=== PATIENT | male | born 1935 | race Caucasian/White ===

== ENCOUNTER 2019-04-18 11:13 | Outpatient (RCR) | payer SELFPAY ==
--- NOTE | 2019-04-24 08:38 | PCCPR ---
Pt called, currently inpt for staff infection; plans to start CR Mon 04/29.
--- NOTE | 2019-05-09 09:46 | PCCPR ---
Program is temporarily suspended due to COVID outbreak.
--- NOTE | 2019-05-23 10:29 | PCCPR ---
Spoke with Hema. He states he is still recovering after being hospitalized but its trying to get in some walking each day. He did received the home exercise guidelines in the mail. Educated him on starting low & slow with exercise and increase as tolerated since he is still recovering from hospitalization. No further questions. Will follow up with Hema next week.
--- NOTE | 2019-06-13 13:58 | PCCPR ---
Weekly update call-informed patient of continued closure through the month of June due to the extension of the senior living in place order. No questions at this time.
--- NOTE | 2019-07-12 14:44 | PCCPR ---
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 He has been on antibiotics for several weeks. He has been having some SOB with swelling to feet and ankles. they have a call out to the Miter Saw Operator for instruction. She states Dr Coyne has cleared him from active infection. They hope he is feeling better to return to the program as he improves and feels stronger. Explained We will keep in touch every couple of weeks on questions and our reopening plans.
== END 2019-04-18 23:59 | disposition home or self-care (01) ==
LOC: ANHCPREHAB 11:13
PROVIDERS: PCP Internal Medicine; Visit Provider Internal Medicine Cardiovascular Disease
DX: I50.9 Heart failure, unspecified (principal)
CPT/HCPCS: 99199

== ENCOUNTER 2019-04-19 10:29 | Outpatient (CLI) | payer MEDICARE, SELFPAY ==
--- NOTE | ~2019-04-19 | US_ITS ---
US venous doppler UE LT DATE: 04/19/2019 11:27 INDICATION: Redness and swelling of left upper extremity TECHNIQUE: Real-time imaging, color flow imaging and Doppler analysis COMPARISON: None FINDINGS: Pacemaker wire is visualized in the left subclavian vein. The left internal jugular, subclavian, axillary, brachial, basilic, cephalic, radial and ulnar veins are patent, without evidence of intraluminal thrombus or occlusion. There is normal compression of th e veins where applicable. IMPRESSION: No evidence of deep venous thrombosis of left upper extremity Reviewed, dictated and finalized at [facility]. Reviewed, dictated and finalized at location B. ING DEPARTMENT END FINDER
== END 2019-04-19 10:30 | disposition home or self-care (01) ==
PROVIDERS: PCP Internal Medicine; Visit Provider Internal Medicine
DX: M79.89 Other specified soft tissue disorders (principal)
CPT/HCPCS: 88108; 93971

== ENCOUNTER 2019-04-19 11:48 | Inpatient (IN) | payer MEDICARE, SELFPAY ==
--- NOTE | ~2019-04-19 | US_ITS ---
EXAMINATION: US elbow asp inj w image LT DATE: 04/19/2019 16:53 INDICATION: Cellulitis at the left forearm and more focal soft tissue swelling posterior to the olecr anon. TECHNIQUE: Initial ultrasound images of the left elbow and forearm were obtained. The loculated fluid collection was identified posterior to the olecranon and it was elected to proceed with aspiration as. See disc ussed with Dr. De Guzman. The procedure and its risks and benefits were discussed with the patient. Kirill hsu risks discussed included bleeding, infection, and allergic reaction. The patient understood the risks and agreed to proceed. The skin overlying the fluid collection was prepped and draped in steril e fashion. 1% lidocaine was used for local anesthesia. Under ultrasound guidance, an 18-gauge needle was advanced into the collection. Fluid was aspirated. The needle was removed, and a dressing was mago lied. There were no immediate complications. FINDINGS: Ultrasound images demonstrate a complex anechoic fluid flexion with multiple thin internal septations overlying the olecranon. The fluid collection measures up to 3.6 x 1.3 cm in the sagittal plane. Sub sequent images demonstrate aspiration needle within the fluid collection. Aspiration yielded 8 mL gabriel udy orange-colored fluid with gradual decompression of the fluid collection. IMPRESSION: 1. Successful ultrasound-guided left olecranon bursal aspiration yielding 8 mL of fluid which was se nt to the lab for Gram stain, cultures and crystal analysis. Reviewed, dictated and finalized at location A. P AND WHEAT FARMER IMPRESSION: 1. Successful ultrasound-guided left olecranon bursal aspiration yielding 8 mL of fluid which was sent to the lab for Gram stain, cultures and crystal analys is.
[2019-04-19 12:04] VITALS: BP 120/87; PULSE 71; RESP 17; TEMP 36.9; O2SAT 100
--- NOTE | 2019-04-19 12:29 | PC.NURSE ---
Pt states he has had cellulitis to the R arm x 2 wks. Pt states he took doxycycline x10 days without improvement. Pt states he started a new abt yesterday and was told to call PCP if no improvement after a full days dose. Pt has no improvement. Pt had doppler of R arm to r/o clot. Pt doppler negative. Pt R arm swollen, tender and erythematous. Pt is A&Ox4. Pt has no concerns at this time.
[2019-04-19 12:55] LABS: Basophils Percent Auto 0.3 % (0.2-1.2); Eosinophils Absolute Auto 0.3 K/mm3 (0-0.3); Eosinophils Percent Auto 2.9 % (0-4.4); Hematocrit 42.6 % (42.0-52.0); Hemoglobin 12.7 g/dL (14.0-18.0); Immature Granulocyte Absolute 0.05 K/mm3 (0.00-0.031); Immature Granulocyte Percent A 0.5 % (0-0.5); Lymphocytes Percent Auto 11.9 % (18.3-44.2); Mean Corpuscular HGB Conc 29.8 g/dl (32-36); Mean Corpuscular Hemoglobin 25.5 pg (26-34); Mean Corpuscular Volume 85.5 fl (80-100); Mean Platelet Volume 11.5 fl (7.4-10.4); Monocytes Absolute Auto 1.5 K/mm3 (0.1-0.6); Monocytes Percent Auto 16.5 % (2.6-8.5); Neutrophils Absolute Auto 6.3 K/mm3 (1.3-6.7); Neutrophils Percent Auto 67.9 % (45.5-73.1); Platelet Count Result 194 k/mm3 (150-375); Red Blood Count 4.98 M/mm3 (4.6-6.20); Red Cell Distribution Width 18.7 % (11.5-14.5); White Blood Count 9.2 K/mm3 (4.5-10.0)
[2019-04-19 13:06] LABS: Hypochromasia 1+ (NORMAL); Platelet Estimate Adequate (Adequate); Stomatocytes 1+ (NORMAL); Target Cells 1+ (NORMAL)
[2019-04-19 13:11] LABS: Alanine Aminotransferase 22 U/L (4-50); Albumin Level 3.6 g/dL (3.5-5.1); Alkaline Phosphatase 57 U/L (38-126); Aspartate Amino Transferase 36 U/L (17-59); Blood Urea Nitrogen 37 mg/dL (9-20); Calcium 8.9 mg/dL (8.4-10.2); Carbon Dioxide 34 mmol/L (22-30); Chloride 96 mmol/L (98-107); Estimated CRCL calculation 46 ml/min; Estimated Glomerular Filt Rate 58; Glucose 72 mg/dL (75-110); Potassium 3.5 mmol/L (3.4-5.0); Sodium 139 mmol/L (137-145)
--- NOTE | 2019-04-19 14:24 | ED.EXTPRO ---
HPI - Extremity Problem General Chief complaint: Extremity Problem,Nontraumatic Stated complaint: Sent from US after negative study Time Seen by Provider: 04/19/19 12:38 Source: patient, family and RN notes reviewed Mode of arrival: ambulatory Limitations: no limitations History of Present Illness HPI Narrative: A 83 y/o male presents to the ED with LUE swelling and erythema for the past 2 weeks. He states that he saw his PCP, Dr. Garnica, roughly 10 days ago and was placed on Doxycycline which he finished a couple days ago. He reports that his symptoms improved after the first round of abx but that they returned, so his PCP placed him on a second round of Doxycycline on Tuesday. He notes some LUE numbness and lt elbow tenderness. He denies any fevers, chills, SOB, N/V/D, or ABD pain. MD Complaint: extremity swelling (and erythema) Onset (ago): week(s) (2) Pain Consistency: intermittent Location: left and upper extremity Relieving factors: medication (Doxycycline) Associated symptoms: other (LUE numbness and lt elbow tenderness) Related Data Home Medications Medication Instructions Recorded Confirmed albuterol sulfate 90 mcg/actuation 1 puff INHALATION Q4H PRN 01/25/19 aerosol inhaler antiarthritic combination no.2 900 mg PO 01/25/19 mg tablet aspirin 81 mg tablet,delayed 81 mg PO DAILY 01/25/19 release calcium carbonate 600 mg calcium 600 mg PO DAILY 01/25/19 (1,500 mg) tablet cholecalciferol (vitamin D3) 10 400 unit PO DAILY 01/25/19 mcg (400 unit) capsule dabigatran etexilate 150 mg capsule 150 mg PO BID 01/25/19 finasteride 5 mg tablet 5 mg PO DAILY 01/25/19 tvrpgxcd-bpy-tzqnb acid 300 1 tablet PO DAILY 01/25/19 mcg-lycopene 600 mcg-lutein 300 mcg tablet omega-3 fatty acids 1,000 mg 2,000 mg PO BID cap 01/25/19 capsule ramipril 10 mg capsule 10 mg PO DAILY 01/25/19 simvastatin 40 mg tablet 40 mg PO DAILY 01/25/19 vit C 250 mg-E 200 unit-zinc 40 1 tablet PO BID 01/25/19 mg-copper 1 ug-qolnig-cmzgtm capsule furosemide 40 mg tablet 60 mg PO BID tablet 02/19/19 metolazone 2.5 mg tablet 2.5 mg PO .qod tablet 04/19/19 Allergies Allergy/AdvReac Type Severity Reaction Status Date / Time Cat Dander Allergy Mild ITCHY EYES Uncoded 04/19/19 09:05 Review of Systems Review of Systems: All systems reviewed & are unremarkable except as noted in HPI and below Constitutional: Constitutional: Denies chills and Denies fever(s) Respiratory: Respiratory: Denies dyspnea Gastrointestinal: Gastrointestinal: Denies abdominal pain, Denies diarrhea, Denies nausea and Denies vomiting Musculoskeletal: Musculoskeletal: Reports other (LUE swelling and erythema, lt elbow tenderness) Neurologic: Reports numbness (LUE) [facility] Past Medical History Medical History A-fib Abnormal EKG Arthritis Benign essential hypertension BMI 24.0-24.9, adult BMI 25.0-25.9,adult BPH (benign prostatic hyperplasia) CAD (coronary artery disease) Cataract of right eye CHF (congestive heart failure) DM type 2 (diabetes mellitus, type 2) Encounter for routine adult health examination without abnormal findings Follow up H/O: HTN (hypertension) History of angina History of GI bleed History of inguinal hernia Hypercholesteremia Hyperlipidemia Lumbar stenosis On senior care drug therapy BOOGIE on CPAP Pedal edema PMR (polymyalgia rheumatica) Pneumonia SOB (shortness of breath) Swelling of left upper extremity URI (upper respiratory infection) Surgical History Surgical History History of angioplasty x3. History of appendectomy History of inguinal hernia repair History of nasal septoplasty History of tonsillectomy History of vascular surgery Hx of CABG Hx of cardiac cath Hx of heart artery stent x6. Family History Family History Mother Family history of cardiovascular disease
[2019-04-19 17:00] LABS: Appearance Synovial Fluid Cloudy (Clear); Color Synovial Fluid Yellow (Colorless); Source Synovial Fluid Synovial fluid
[2019-04-19 17:01] LABS: Lymphocytes Synovial Fluid 1 %; Monocytes Synovial Fluid 7 %; Neutrophils Synovial Fluid 92 % (0-25); Nucleated Cell Synovial Fluid 23600 /uL (0-200); RBC Synovial Fluid 9621 /uL (0-0)
[2019-04-19 17:05] LABS: Crystals Synovial Fluid None Seen (None Seen)
[2019-04-19 18:45] VITALS: BP 105/61; PULSE 70; RESP 18; O2SAT 100
[2019-04-19 19:05] VITALS: BP 108/60; PULSE 71; RESP 16; TEMP 36.4; O2SAT 99
--- NOTE | 2019-04-19 19:48 | PC.NURSE ---
This patient, Shiraz Martinez, was admitted to 2 Medical Room 251-. Patient/family oriented to hospital policies and general routines including ID bracelet, bed and alarms, visiting hours, pain management, procedures, bathroom and other care routines, personal items, smoking policy, room service/diet, and visiting hours. Valuables list has been completed. Information on how to activate the Rapid Response Team has been discussed. Patient/Family are encouraged to report perceived risks to care and to ask questions if they do not understand what they are told or what they should do.
[2019-04-19 21:55] VITALS: BP 102/62; PULSE 70; RESP 18; TEMP 36.8; O2SAT 96
[2019-04-20] VITALS (10 sets, daily range): BP systolic 100–145; BP diastolic 48–82; PULSE 67–117; RESP 16–20; TEMP 36.3–37; O2SAT 91–100
--- NOTE | 2019-04-20 05:00 | PM.IMHP ---
H&P: [facility] History of Present Illness Chief complaint: Left upper extremity cellulitis Narrative: Date and time of patient contact: 04/20/2019 at 5:30 a.m. Shiraz Martinez is a 83 year old male with a past medical history increased risk of diabetes, hypertension and CHF who presented to the ER with left upper extremity swelling and erythema that is been present for the last 12 days. The patient has been evaluated by the primary care physician about 10 days ago and had been placed on doxycycline which she finished a couple of days ago. His extremity erythema and swelling had improved on antibiotics but then worsened couple of days later. He was placed on a 2nd round of doxycycline and referred for an outpatient venous Doppler. His venous Doppler was negative for DVT. He was then referred to the ER for further evaluation. The patient had ultrasound-guided drainage of his olecranon bursa which demonstrated a few gram-positive cocci in clusters and many white cells. The patient was subsequently admitted for IV antibiotic therapy with vancomycin treatment of left upper extremity cellulitis and bursitis. The patient reports that since admission a erythema and swelling in his arm has improved significantly. He reports that his elbow was uncomfortable but not truly painful. He denies any trauma or known abrasions to the left upper extremity. He feels some fullness in the elbow when he tries to straighten out his Arb all the way. He has been having some looser stools since he was started on the doxycycline. He has not had any incontinent stools. He denies any hematochezia or melena. He does have a history of CHF and was recently started on metolazone in addition to his Lasix. He reports his urine output has increased in proportion to the increased medications. He still has some swelling in his lower extremities but it had improved from previous. He has had some decreased appetite with his current symptoms of cellulitis but denies any nausea or vomiting. Review of Systems Review of Systems: Narrative: Except as documented in the HPI, all other systems were reviewed and are negative. [facility] Past Medical History Medical History (Updated 04/20/19 @ 07:23 by Bette Reeder DO) Abnormal EKG Arthritis Benign essential hypertension BMI 24.0-24.9, adult BPH (benign prostatic hyperplasia) CAD (coronary artery disease) Coronary stents 1997, 1 vessel bypass in 2001, stenting of grafted vessel in 2005 CHF (congestive heart failure) Echocardiogram March 30, 2019 performed at [facility] (Dr. Gardner) Mild left ventricular systolic dysfunction with EF of 49%, moderate left ventricular enlargement, moderate concentric left ventricular hypertrophy, severe left atrial enlargement, moderate right atrial enlargement, moderate to severe mitral valve regurgitation, mild aortic stenosis, mild aortic valve regurgitation, moderate to severe tricuspid regurgitation, severe pulmonary hypertension DM type 2 (diabetes mellitus, type 2) A1c of 6.0 2015 History of angina History of GI bleed Upper GI bleed due to duodenal ulcer May 2015 with EGD performed by Dr. Saavedra Hypercholesteremia Hyperlipidemia Hypertensive nephropathy Lumbar stenosis BOOGIE on CPAP Paroxysmal atrial fibrillation Pedal edema PMR (polymyalgia rheumatica) Pneumonia Severe pulmonary arterial systolic hypertension Surgical History Surgical History (Updated 04/20/19 @ 07:23 by Bette Reeder DO) History of angioplasty x3. History of appendectomy History of bilateral cataract extraction History of inguinal hernia repair Left inguinal hernia repair History of nasal septoplasty History of tonsillectomy History of vascular surgery Hx of CABG Hx of cardiac cath Hx of heart artery stent x6. Family History Family History Mother Hypertension CHF (congestive heart failure) Cardiovascular disease Sibling Lung cancer
[2019-04-20 05:30] LABS: Basophils Percent Auto 0.1 % (0.2-1.2); Eosinophils Absolute Auto 0.3 K/mm3 (0-0.3); Eosinophils Percent Auto 4.2 % (0-4.4); Hematocrit 38.8 % (42.0-52.0); Hemoglobin 11.9 g/dL (14.0-18.0); Immature Granulocyte Absolute 0.06 K/mm3 (0.00-0.031); Immature Granulocyte Percent A 0.8 % (0-0.5); Lymphocytes Absolute Auto 0.88 K/mm3 (0.9-3.2); Lymphocytes Percent Auto 11.5 % (18.3-44.2); Mean Corpuscular HGB Conc 30.7 g/dl (32-36); Mean Corpuscular Hemoglobin 25.8 pg (26-34); Monocytes Absolute Auto 1.3 K/mm3 (0.1-0.6); Monocytes Percent Auto 16.5 % (2.6-8.5); Neutrophils Absolute Auto 5.1 K/mm3 (1.3-6.7); Neutrophils Percent Auto 66.9 % (45.5-73.1); Platelet Count Result 196 k/mm3 (150-375); Red Blood Count 4.62 M/mm3 (4.6-6.20); Red Cell Distribution Width 18.3 % (11.5-14.5); White Blood Count 7.7 K/mm3 (4.5-10.0)
[2019-04-20 05:51] LABS: Blood Urea Nitrogen 37 mg/dL (9-20); Calcium 8.5 mg/dL (8.4-10.2); Carbon Dioxide 36 mmol/L (22-30); Chloride 94 mmol/L (98-107); Estimated CRCL calculation 50 ml/min; Estimated Glomerular Filt Rate > 60; Glucose 100 mg/dL (75-110); Potassium 3.1 mmol/L (3.4-5.0); Sodium 135 mmol/L (137-145)
[2019-04-20] MEDS: DABIGATRAN ETEXILATE 150 MG CAPSULE PO ×2 (08:04→16:22)
[2019-04-20] MEDS: SIMVASTATIN 20 MG TABLET 40 MG PO (08:04)
[2019-04-20] MEDS: OPTI-GEN TAB 1 TABLET PO (08:04)
[2019-04-20] MEDS: FUROSEMIDE 20 MG TABLET 60 MG PO ×2 (08:04→16:22)
[2019-04-20] MEDS: ASPIRIN 81 MG ENTERIC TABLET PO (08:05)
[2019-04-20] MEDS: CHOLECALCIFEROL 400 UNITS TABLET (VIT D) PO (08:05)
[2019-04-20] MEDS: PANTOPRAZOLE 40 MG TABLET PO (08:05)
[2019-04-20] MEDS: CALCIUM CARBONATE (OSCAL) 500 MG TABLET PO (08:05)
[2019-04-20] MEDS: FINASTERIDE 5 MG TABLET PO (08:05)
[2019-04-20] MEDS: POTASSIUM CHLORIDE 20 MEQ TABLET 40 MEQ PO (08:06)
--- NOTE | 2019-04-20 08:11 | PC.NURSE ---
Called pharmacy and requested 0900 dose of ramipril be sent to floor for administration.
[2019-04-20] MEDS: ramipriL 5 MG CAPSULE 10 MG PO (11:27)
[2019-04-20] MEDS: ALBUTEROL SULFATE NEB 2.5 MG/3 ML INH INHALATION (14:08)
[2019-04-20 15:30] LABS: Glucose Point of Care 152 (65-105)
--- NOTE | 2019-04-20 16:10 | PM.IMPN ---
Progress Note: A&P Assessment and Plan (1) Cellulitis of arm, left: Code(s): L03.114 - Cellulitis of left upper limb Status: Acute Assessment and Plan: -----Gram stain shows Gram-positive cocci in clusters with white blood cells. Continue vancomycin. Patient has had 2 rounds of doxycycline without much improvement. Blood cultures are still pending but no sign of systemic infection at this time. Will monitor (2) Bursitis, olecranon: Qualifiers: Laterality: left Qualified Code(s): M70.22 - Olecranon bursitis, left elbow Code(s): M70.20 - Olecranon bursitis, unspecified elbow Status: Acute Assessment and Plan: -----continue with plan above. (3) DM type 2 (diabetes mellitus, type 2): Qualifiers: Diabetes mellitus marine oil terminal superintendent insulin use: without marine oil terminal superintendent use Diabetes mellitus complication status: without complication Qualified Code(s): E11.9 - Type 2 diabetes mellitus without complications Code(s): E11.9 - Type 2 diabetes mellitus without complications Status: Acute Assessment and Plan: -----will order sliding scale insulin, Tradjenta, Accu-Cheks and hypoglycemia protocol. (4) CHF (congestive heart failure): Qualifiers: Heart failure type: unspecified Heart failure chronicity: acute Qualified Code(s): I50.9 - Heart failure, unspecified Code(s): I50.9 - Heart failure, unspecified Status: Acute Assessment and Plan: -----patient had a recent echo which showed systolic dysfunction. He has been started on metolazone and was actually doing better until he got some fluids in the ER. Will continue with oral diuretics at this time and monitor fluid status Time Spent With Patient Time with patient: 25 - 35 minutes Subjective Date/time seen: 04/20/19 16:10 Interval history: Pt is a 83-year-old male here for left arm cellulitis. Patient was seen today and states that he thinks the redness is a little less. He is having some pain at the elbow but overall doing well. Pt denies nausea, vomiting, fevers, chills, constipation, diarrhea, chest pain, sob, or abdominal pain. Patient states that he has been having issues with lower extremity swelling and his certified tower climber ordered an echo and ordered him metolazone. This was getting better until he came to the ER and they gave him IV fluids and now he is more swollen. Review of Systems Review of Systems: All systems reviewed & are unremarkable except as noted in HPI and below Exam Narrative: Exam Narrative: General: Well developed well nourished patient resting comfortably in bed in no acute distress HEENT: normocephalic Neck: supple Neuro: Alert and oriented x4 CV:RRR with slight 1/6 systolic murmur best heard at the right intercostal space Resp: Mild faint crackles at the bases Abd: Soft, non distended. No pain to palpation. Positive bowel sounds Extremities: Lower extremity edema 2+ up into the mid singh. Left arm cellulitis that is erythematous without discharge. Pulses and sensation intact. Erythema within the demarcated lines. Objective Data Vital Signs Vital Signs: Vital Signs - 24 hr 04/19/19 18:45 04/19/19 19:05 04/19/19 21:55 Temperature 97.6 F 98.2 F Pulse Rate 70 71 70 Respiratory Rate 18 16 18 Blood Pressure 105/61 108/60 102/62 Pulse Oximetry 100 99 96 04/20/19 02:00 04/20/19 05:34 04/20/19 06:00 Temperature 98.6 F 97.9 F Pulse Rate 69 69 70 Respiratory Rate 20 18 Blood Pressure 145/82 H 107/48 L Pulse Oximetry 98 98 96 04/20/19 10:00 04/20/19 14:00 04/20/19 14:08 Temperature 97.7 F 97.3 F L Pulse Rate 70 68 67 Respiratory Rate 20 20 20 Blood Pressure 109/57 L 100/55 L Pulse Oximetry 91 100 04/20/19 14:15 Temperature Pulse Rate 70 Respiratory Rate 20 Blood Pressure Pulse Oximetry Intake/Output Intake/Output: Intake & Output 04/17/19 04/18/19 04/19/19 04/20/19 23:59 23:59 23:59 2
[2019-04-20 18:26] LABS: Glucose Point of Care 160 (65-105)
[2019-04-20 21:42] LABS: Glucose Point of Care 152 (65-105)
[2019-04-21] VITALS (7 sets, daily range): BP systolic 90–121; BP diastolic 44–70; PULSE 68–72; RESP 16–20; TEMP 36.2–37.2; O2SAT 93–98
[2019-04-21 05:32] LABS: Hematocrit 40.5 % (42.0-52.0); Hemoglobin 12.8 g/dL (14.0-18.0); Mean Corpuscular HGB Conc 31.6 g/dl (32-36); Mean Corpuscular Hemoglobin 26.2 pg (26-34); Platelet Count Result 200 k/mm3 (150-375); Red Blood Count 4.88 M/mm3 (4.6-6.20); Red Cell Distribution Width 18.2 % (11.5-14.5); White Blood Count 8.1 K/mm3 (4.5-10.0)
[2019-04-21 05:57] LABS: Blood Urea Nitrogen 33 mg/dL (9-20); Calcium 8.7 mg/dL (8.4-10.2); Carbon Dioxide 34 mmol/L (22-30); Chloride 94 mmol/L (98-107); Estimated CRCL calculation 50 ml/min; Estimated Glomerular Filt Rate > 60; Glucose 111 mg/dL (75-110); Potassium 2.9 mmol/L (3.4-5.0); Sodium 133 mmol/L (137-145)
--- NOTE | 2019-04-21 08:09 | PM.IMPN ---
Progress Note: A&P Assessment and Plan (1) Cellulitis of arm, left: Code(s): L03.114 - Cellulitis of left upper limb Status: Acute Assessment and Plan: -----Gram stain shows Gram-positive cocci in clusters with white blood cells. The patient's arm appears very erythematous and does not look like it has gotten any better from yesterday. Will continue the vancomycin and await culture. Blood cultures are negative to date. Patient has had 2 rounds of doxycycline outpatient without much improvement. (2) Bursitis, olecranon: Qualifiers: Laterality: left Qualified Code(s): M70.22 - Olecranon bursitis, left elbow Code(s): M70.20 - Olecranon bursitis, unspecified elbow Status: Acute Assessment and Plan: -----continue with plan above. (3) DM type 2 (diabetes mellitus, type 2): Qualifiers: Diabetes mellitus assisted insulin use: without intermediate manager use Diabetes mellitus complication status: without complication Qualified Code(s): E11.9 - Type 2 diabetes mellitus without complications Code(s): E11.9 - Type 2 diabetes mellitus without complications Status: Acute Assessment and Plan: -----last glucose 111. Will order sliding scale insulin, Tradjenta, Accu-Cheks and hypoglycemia protocol. (4) CHF (congestive heart failure): Qualifiers: Heart failure type: unspecified Heart failure chronicity: acute Qualified Code(s): I50.9 - Heart failure, unspecified Code(s): I50.9 - Heart failure, unspecified Status: Acute Assessment and Plan: -----patient had a recent echo which showed systolic dysfunction. He has been started on metolazone and was actually doing better until he got some fluids in the ER. The lower extremity swelling is better. (5) Hypokalemia: Code(s): E87.6 - Hypokalemia Status: Acute Assessment and Plan: -----worsening today 2.9. Will give 40 mEq this morning and 40 mEq tonight. He does not think he takes potassium at home but he is going to confirm with his . Will continue to monitor and will draw magnesium tomorrow. Subjective Date/time seen: 04/21/19 08:09 Interval history: Pt is a 83-year-old male here for left arm cellulitis. Patient was seen today and states he does not feel like his arm is much better. He says it is starting to weep. He denies night sweats, fevers, chills, nausea, vomiting, diarrhea, constipation, chest pain or shortness of breath. He is eating and drinking well. He feels as though his lower extremity swelling is better. He is unsure if he takes potassium at home. He thinks 1 of his pills may have potassium in it but does not think he takes an actual potassium pill at home. He is going to verify with his . Exam Narrative: Exam Narrative: General: Well developed well nourished patient resting comfortably in bed in no acute distress HEENT: normocephalic Neck: supple Neuro: Alert and oriented x4 CV:RRR with 2/6 systolic murmur heard in all areas. Resp: CTA Abd: Soft, non distended. No pain to palpation. Positive bowel sounds Extremities: Trace pitting edema up to ankles the lower extremities. Left arm cellulitis that is erythematous with serous discharge-no change today. Pulses and sensation intact. Erythema within the demarcated lines. Objective Data Vital Signs Vital Signs: Vital Signs - 24 hr 04/20/19 10:00 04/20/19 14:00 04/20/19 14:08 Temperature 97.7 F 97.3 F L Pulse Rate 70 68 67 Respiratory Rate 20 20 20 Blood Pressure 109/57 L 100/55 L Pulse Oximetry 91 100 04/20/19 14:15 04/20/19 18:00 04/20/19 20:00 Temperature 97.8 F 97.5 F L Pulse Rate 70 117 H 70 Respiratory Rate 20 20 16 Blood Pressure 112/68 110/62 Pulse Oximetry 93 94 04/20/19 22:18 04/21/19 02:00 04/21/19 06:00 Temperature 97.2 F L 98.3 F Pulse Rate 71 68 70 Respiratory Rate 16 20 Blood Pressure 108/70 121/66 Pulse Oxime
[2019-04-21] MEDS: FUROSEMIDE 20 MG TABLET 60 MG PO ×2 (09:00→18:25)
[2019-04-21] MEDS: CHOLECALCIFEROL 400 UNITS TABLET (VIT D) PO (09:01)
[2019-04-21] MEDS: POTASSIUM CHLORIDE 20 MEQ TABLET 40 MEQ PO ×2 (09:01→18:26)
[2019-04-21] MEDS: ramipriL 5 MG CAPSULE 10 MG PO (09:01)
[2019-04-21] MEDS: metOLazone 2.5 MG TABLET PO (09:01)
[2019-04-21] MEDS: SIMVASTATIN 20 MG TABLET 40 MG PO (09:01)
[2019-04-21] MEDS: CALCIUM CARBONATE (OSCAL) 500 MG TABLET PO (09:01)
[2019-04-21] MEDS: OPTI-GEN TAB 1 TABLET PO (09:01)
[2019-04-21] MEDS: FINASTERIDE 5 MG TABLET PO (09:01)
[2019-04-21] MEDS: MAGNESIUM OXIDE 200 MG TABLET PO ×2 (09:01→20:37)
[2019-04-21] MEDS: PANTOPRAZOLE 40 MG TABLET PO (09:01)
[2019-04-21] MEDS: DABIGATRAN ETEXILATE 150 MG CAPSULE PO ×2 (09:01→18:25)
[2019-04-21 09:19] LABS: Glucose Point of Care 119 (65-105)
[2019-04-21 13:03] LABS: Glucose Point of Care 152 (65-105)
[2019-04-21 18:58] LABS: Glucose Point of Care 134 (65-105)
[2019-04-21 21:38] LABS: Glucose Point of Care 171 (65-105)
[2019-04-22] VITALS (7 sets, daily range): BP systolic 97–115; BP diastolic 53–70; PULSE 62–70; RESP 16–20; TEMP 36.2–37.1; O2SAT 93–98
--- NOTE | 2019-04-22 03:02 | PC.NURSE ---
Daylight Savings Time For Daylight Savings Time Ending in the Fall - Clocks are moved back. For Daylight Savings Time Beginning in the Spring - Clocks are moved ahead. For [facility], the time of change occurs at 0200 hrs. Time is taken from the field observer. This entry on the patient's chart recognizes the change in time reflected during documentation. Example: 2 entries for vital signs may be charted for 0200 hrs.
[2019-04-22 05:44] LABS: Hematocrit 43.4 % (42.0-52.0); Hemoglobin 13.2 g/dL (14.0-18.0); Mean Corpuscular HGB Conc 30.4 g/dl (32-36); Mean Corpuscular Hemoglobin 25.6 pg (26-34); Mean Corpuscular Volume 84.3 fl (80-100); Mean Platelet Volume 10.9 fl (7.4-10.4); Platelet Count Result 235 k/mm3 (150-375); Red Blood Count 5.15 M/mm3 (4.6-6.20); Red Cell Distribution Width 18.8 % (11.5-14.5); White Blood Count 9.1 K/mm3 (4.5-10.0)
[2019-04-22 05:52] LABS: Blood Urea Nitrogen 39 mg/dL (9-20); Calcium 8.8 mg/dL (8.4-10.2); Carbon Dioxide 37 mmol/L (22-30); Chloride 92 mmol/L (98-107); Estimated CRCL calculation 46 ml/min; Estimated Glomerular Filt Rate 58; Glucose 118 mg/dL (75-110); Potassium 3.2 mmol/L (3.4-5.0); Sodium 133 mmol/L (137-145)
[2019-04-22 05:59] LABS: Transferrin 256 mg/dL (206-381)
[2019-04-22 06:46] LABS: Iron 43 ug/dL (49-181)
[2019-04-22 06:56] LABS: Percent Iron Saturation 12 % (20-50)
[2019-04-22 07:02] LABS: Folic Acid > 20.0 ng/mL (2.76->20)
[2019-04-22] MEDS: DABIGATRAN ETEXILATE 150 MG CAPSULE PO ×2 (08:37→16:56)
[2019-04-22] MEDS: FERROUS SULFATE 324 MG TABLET PO (08:37)
[2019-04-22] MEDS: MAGNESIUM OXIDE 200 MG TABLET PO ×2 (08:37→20:36)
[2019-04-22] MEDS: POTASSIUM CHLORIDE 20 MEQ TABLET 40 MEQ PO (08:37)
[2019-04-22] MEDS: FINASTERIDE 5 MG TABLET PO (08:37)
[2019-04-22] MEDS: OPTI-GEN TAB 1 TABLET PO (08:37)
[2019-04-22] MEDS: CHOLECALCIFEROL 400 UNITS TABLET (VIT D) PO (08:37)
[2019-04-22] MEDS: FUROSEMIDE 20 MG TABLET 60 MG PO ×2 (08:37→16:56)
[2019-04-22] MEDS: SODIUM CHLORIDE 0.9% IV 250 ML 100 ML IV CONT (08:38)
[2019-04-22] MEDS: CALCIUM CARBONATE (OSCAL) 500 MG TABLET PO (08:38)
[2019-04-22] MEDS: PANTOPRAZOLE 40 MG TABLET PO (08:38)
[2019-04-22] MEDS: SIMVASTATIN 20 MG TABLET 40 MG PO (08:38)
[2019-04-22 09:34] LABS: Glucose Point of Care 119 (65-105)
[2019-04-22 12:26] LABS: Glucose Point of Care 136 (65-105)
--- NOTE | 2019-04-22 13:47 | PM.IMPN ---
Progress Note: A&P Assessment and Plan (1) Cellulitis of arm, left: Code(s): L03.114 - Cellulitis of left upper limb Status: Acute Assessment and Plan: -----Cx growing staph aureus. Awaiting sensativities. The patient's arm appears very erythematous and does not look like it has gotten any better from yesterday. Will continue the vancomycin and await culture. Blood cultures are negative to date. Patient has had 2 rounds of doxycycline which helped initially but did not completely resolve the infection. (2) Bursitis, olecranon: Qualifiers: Laterality: left Qualified Code(s): M70.22 - Olecranon bursitis, left elbow Code(s): M70.20 - Olecranon bursitis, unspecified elbow Status: Acute Assessment and Plan: -----continue with plan above. (3) DM type 2 (diabetes mellitus, type 2): Qualifiers: Diabetes mellitus termite helper insulin use: without termite helper use Diabetes mellitus complication status: without complication Qualified Code(s): E11.9 - Type 2 diabetes mellitus without complications Code(s): E11.9 - Type 2 diabetes mellitus without complications Status: Acute Assessment and Plan: -----last glucose 118. Will order sliding scale insulin, Tradjenta, Accu-Cheks and hypoglycemia protocol. (4) CHF (congestive heart failure): Qualifiers: Heart failure type: unspecified Heart failure chronicity: acute Qualified Code(s): I50.9 - Heart failure, unspecified Code(s): I50.9 - Heart failure, unspecified Status: Acute Assessment and Plan: -----patient had a recent echo which showed systolic dysfunction. He has been started on metolazone and was actually doing better until he got some fluids in the ER. The lower extremity swelling is better. (5) Hypokalemia: Code(s): E87.6 - Hypokalemia Status: Acute Assessment and Plan: -----midly low again today 3.2. will give 40meq and start 20mg BID scheduled with his home lasix. He does not think he takes potassium at home but he is going to confirm with his . Will continue to monitor and will draw magnesium tomorrow. Subjective Date/time seen: 04/22/19 13:47 Interval history: Pt is a 83-year-old male here for left arm cellulitis. Patient was seen today with family at bedside. he says he has been trying to elevate his arm as he can. He thinks the erythema is down a bit but it is still very swollen. He denies night sweats, fevers, chills, nausea, lightheadedness, vomiting, diarrhea, constipation, chest pain or shortness of breath. He is eating and drinking well. Exam Narrative: Exam Narrative: General: Well developed well nourished patient resting comfortably in bed in no acute distress HEENT: normocephalic Neck: supple Neuro: Alert and oriented x4 CV:RRR with 2/6 systolic murmur heard in all areas. Resp: CTA Abd: Soft, non distended. No pain to palpation. Positive bowel sounds Extremities: No edema to the LE. Left arm cellulitis with bursitis that is erythematous with serous discharge-no change today. Pulses and sensation intact. Erythema within the demarcated lines. Objective Data Vital Signs Vital Signs: Vital Signs - 24 hr 04/21/19 12:50 04/21/19 14:00 04/21/19 18:00 Temperature 97.7 F 99.0 F Pulse Rate 71 72 Respiratory Rate 20 18 Blood Pressure 96/55 L 104/62 98/60 L Pulse Oximetry 98 95 04/21/19 22:00 04/22/19 03:00 04/22/19 06:00 Temperature 98.5 F 98.7 F 98.5 F Pulse Rate 71 70 70 Respiratory Rate 16 16 16 Blood Pressure 100/60 111/70 105/61 Pulse Oximetry 96 93 95 04/22/19 10:45 Temperature 97.8 F Pulse Rate 62 Respiratory Rate 20 Blood Pressure 97/53 L Pulse Oximetry 97 Intake/Output Intake/Output: Intake & Output 04/19/19 04/20/19 04/21/19 04/23/19 23:59 23:59 23:59 00:59 Intake Total 250 2380 1850 1200 Output Total 654 1250 2000 Balance 250 1726 600 -800 Meds/Resul
--- NOTE | 2019-04-22 14:19 | PC.NURSE ---
In with patient, daughter, and at bedside and reinforced importance of elevating left arm above heart to improve swelling of extremity. Assisted patient to elevate left arm on several blankets with a pillow and towels to keep left arm above heart. Patient and family members verbalized understanding.
[2019-04-22 16:20] LABS: Vancomycin Trough 10.4 ug/mL (10.0-20.0)
[2019-04-22] MEDS: POTASSIUM CHLORIDE 20 MEQ TABLET.ER PO (16:56)
[2019-04-22 18:08] LABS: Glucose Point of Care 122 (65-105)
[2019-04-22 21:25] LABS: Glucose Point of Care 158 (65-105)
[2019-04-23 02:09] VITALS: BP 119/69; PULSE 68; RESP 18; TEMP 36.3; O2SAT 97
[2019-04-23 06:00] VITALS: BP 114/59; PULSE 75; RESP 20; TEMP 36.9; O2SAT 97
[2019-04-23 07:48] LABS: Blood Urea Nitrogen 33 mg/dL (9-20); Calcium 9.1 mg/dL (8.4-10.2); Carbon Dioxide 37 mmol/L (22-30); Chloride 90 mmol/L (98-107); Estimated CRCL calculation 46 ml/min; Estimated Glomerular Filt Rate 58; Glucose 132 mg/dL (75-110); Potassium 3.1 mmol/L (3.4-5.0); Sodium 132 mmol/L (137-145)
[2019-04-23 07:53] LABS: CRP 11.4 mg/dL (<1.0)
[2019-04-23] MEDS: OPTI-GEN TAB 1 TABLET PO (09:03)
[2019-04-23] MEDS: DABIGATRAN ETEXILATE 150 MG CAPSULE PO ×2 (09:03→16:49)
[2019-04-23] MEDS: CHOLECALCIFEROL 400 UNITS TABLET (VIT D) PO (09:04)
[2019-04-23] MEDS: metOLazone 2.5 MG TABLET PO (09:04)
[2019-04-23] MEDS: SIMVASTATIN 20 MG TABLET 40 MG PO (09:04)
[2019-04-23] MEDS: FERROUS SULFATE 324 MG TABLET PO (09:04)
[2019-04-23] MEDS: ASPIRIN 81 MG ENTERIC TABLET PO (09:04)
[2019-04-23] MEDS: MAGNESIUM OXIDE 200 MG TABLET PO ×2 (09:04→20:28)
[2019-04-23] MEDS: PANTOPRAZOLE 40 MG TABLET PO (09:04)
[2019-04-23] MEDS: FUROSEMIDE 20 MG TABLET 60 MG PO ×2 (09:04→16:49)
[2019-04-23] MEDS: CALCIUM CARBONATE (OSCAL) 500 MG TABLET PO (09:04)
[2019-04-23] MEDS: FINASTERIDE 5 MG TABLET PO (09:04)
[2019-04-23] MEDS: POTASSIUM CHLORIDE 20 MEQ TABLET.ER PO ×2 (09:04→16:49)
[2019-04-23 09:08] LABS: Glucose Point of Care 238 (65-105)
[2019-04-23] MEDS: INSULIN ASPART (*BKC) 100 UNITS/ML SUB-Q ×2 (09:08→16:56)
[2019-04-23 10:00] VITALS: BP 116/69; PULSE 70; RESP 20; TEMP 37.4; O2SAT 98
--- NOTE | 2019-04-23 11:40 | P.CDI_ITS ---
CDI Query Clarification Request -CHF, acute has been documented - patient had a recent echo which showed systolic dysfunction has been documented -Coders cannot code from echo findings Please further specify type of acute CHF: * Systolic * Diastolic * Combined systolic and diastolic * Unable to determine
[2019-04-23] MEDS: ACETAMINOPHEN 325 MG TABLET 650 MG PO (12:30)
[2019-04-23 12:41] LABS: Glucose Point of Care 105 (65-105)
[2019-04-23 14:00] VITALS: BP 127/69; PULSE 69; RESP 16; TEMP 37.4; O2SAT 94
--- NOTE | 2019-04-23 16:53 | PM.IMPN ---
Progress Note: A&P Assessment and Plan (1) Cellulitis of arm, left: Code(s): L03.114 - Cellulitis of left upper limb Status: Acute Assessment and Plan: -----Cx growing MRSA. Continue vancomycin as this is the 1st day I have seen improvement. Ultrasound of the extremity does not showed DVT. Will likely go home on clindamycin once he improves a little bit more. Blood cultures are negative to date. Patient has had 2 rounds of doxycycline which helped initially but did not completely resolve the infection. (2) Bursitis, olecranon: Qualifiers: Laterality: left Qualified Code(s): M70.22 - Olecranon bursitis, left elbow Code(s): M70.20 - Olecranon bursitis, unspecified elbow Status: Acute Assessment and Plan: -----continue with plan above. 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 Will order sliding scale insulin, Tradjenta, Accu-Cheks and hypoglycemia protocol. (4) CHF (congestive heart failure): Qualifiers: Heart failure type: unspecified Heart failure chronicity: acute Qualified Code(s): I50.9 - Heart failure, unspecified Code(s): I50.9 - Heart failure, unspecified Status: Acute Assessment and Plan: -----patient had a recent echo which showed systolic dysfunction. He has been started on metolazone and was actually doing better until he got some fluids in the ER. The lower extremity swelling is better. (5) Hypokalemia: Code(s): E87.6 - Hypokalemia Status: Acute Assessment and Plan: -----midly low again today 3.1. I have scheduled potassium. 2/2 to diuretic therapy. I spoke to the who says he does not usually take potassium at home. I suspect he will need some at discharge. mag normal. Subjective Date/time seen: 04/23/19 16:53 Interval history: Pt is a 83-year-old male here for left arm cellulitis. Patient was seen today with family at bedside. Patient and family states that he is doing a lot better today and the erythema has improved significantly with the elevation. He denies night sweats, fevers, chills, nausea, lightheadedness, vomiting, diarrhea, constipation, chest pain or shortness of breath. He is eating and drinking but is eating less because he says nothing is tasting very good. said this is semi chronic. Discussed options for nutrition at bedside Exam Narrative: Exam Narrative: General: Well developed well nourished patient resting comfortably in bed in no acute distress HEENT: normocephalic Neck: supple Neuro: Alert and oriented x4 CV:RRR with 2/6 systolic murmur heard in all areas. Resp: CTA Abd: Soft, non distended. No pain to palpation. Positive bowel sounds Extremities: No edema to the LE. Left arm cellulitis with bursitis that is erythematous with serous discharge-improvement noted today. Edematous. pulses and sensation intact. Erythema within the demarcated lines. Objective Data Vital Signs Vital Signs: Vital Signs - 24 hr 04/22/19 18:00 04/22/19 21:18 04/23/19 02:09 Temperature 98.0 F 97.2 F L 97.3 F L Pulse Rate 70 66 68 Respiratory Rate 20 16 18 Blood Pressure 112/61 115/66 119/69 Pulse Oximetry 95 98 97 04/23/19 06:00 04/23/19 07:16 04/23/19 10:00 Temperature 98.5 F 99.4 F Pulse Rate 75 67 70 Respiratory Rate 20 20 Blood Pressure 114/59 L 116/69 Pulse Oximetry 97 98 98 04/23/19 14:00 Temperature 99.4 F Pulse Rate 69 Respiratory Rate 16 Blood Pressure 127/69 Pulse Oximetry 94 Intake/Output Intake/Output: Intake & Output 04/20/19 04/21/19 04/22/19 04/23/19
[2019-04-23 16:57] LABS: Glucose Point of Care 202 (65-105)
[2019-04-23] MEDS: LIDOCAINE 5% PATCH 1 PATCH TRANSDERM (17:32)
[2019-04-23 20:36] LABS: Glucose Point of Care 146 (65-105)
[2019-04-23 22:00] VITALS: BP 110/87; PULSE 94; RESP 21; TEMP 36.1; O2SAT 100
[2019-04-24] MEDS: ACETAMINOPHEN 325 MG TABLET 650 MG PO (03:02)
[2019-04-24 05:45] LABS: Basophils Percent Auto 0.4 % (0.2-1.2); Eosinophils Absolute Auto 0.2 K/mm3 (0-0.3); Eosinophils Percent Auto 2.5 % (0-4.4); Hematocrit 40.2 % (42.0-52.0); Hemoglobin 12.6 g/dL (14.0-18.0); Immature Granulocyte Absolute 0.07 K/mm3 (0.00-0.031); Immature Granulocyte Percent A 0.9 % (0-0.5); Lymphocytes Absolute Auto 1.06 K/mm3 (0.9-3.2); Lymphocytes Percent Auto 13.5 % (18.3-44.2); Mean Corpuscular HGB Conc 31.3 g/dl (32-36); Mean Corpuscular Hemoglobin 25.6 pg (26-34); Mean Corpuscular Volume 81.5 fl (80-100); Mean Platelet Volume 10.3 fl (7.4-10.4); Monocytes Absolute Auto 1.3 K/mm3 (0.1-0.6); Monocytes Percent Auto 16.9 % (2.6-8.5); Neutrophils Absolute Auto 5.2 K/mm3 (1.3-6.7); Neutrophils Percent Auto 65.8 % (45.5-73.1); Platelet Count Result 230 k/mm3 (150-375); Red Blood Count 4.93 M/mm3 (4.6-6.20); Red Cell Distribution Width 17.9 % (11.5-14.5); White Blood Count 7.9 K/mm3 (4.5-10.0)
[2019-04-24 06:00] VITALS: BP 115/61; PULSE 70; RESP 18; TEMP 36.9; O2SAT 96
[2019-04-24 06:23] LABS: Blood Urea Nitrogen 39 mg/dL (9-20); Calcium 8.5 mg/dL (8.4-10.2); Carbon Dioxide 38 mmol/L (22-30); Chloride 87 mmol/L (98-107); Estimated CRCL calculation 55 ml/min; Estimated Glomerular Filt Rate > 60; Glucose 114 mg/dL (75-110); Potassium 2.5 mmol/L (3.4-5.0); Sodium 131 mmol/L (137-145)
[2019-04-24 08:00] VITALS: PULSE 70; RESP 18; O2SAT 96
[2019-04-24] MEDS: POTASSIUM CHLORIDE 20 MEQ TABLET.ER PO ×2 (08:09→16:59)
[2019-04-24] MEDS: POTASSIUM CHLORIDE 20 MEQ TABLET PO (08:09)
[2019-04-24] MEDS: FINASTERIDE 5 MG TABLET PO (08:10)
[2019-04-24] MEDS: FUROSEMIDE 20 MG TABLET 60 MG PO ×2 (08:10→16:59)
[2019-04-24] MEDS: FERROUS SULFATE 324 MG TABLET PO (08:10)
[2019-04-24] MEDS: CALCIUM CARBONATE (OSCAL) 500 MG TABLET PO (08:10)
[2019-04-24] MEDS: SIMVASTATIN 20 MG TABLET 40 MG PO (08:10)
[2019-04-24] MEDS: DABIGATRAN ETEXILATE 150 MG CAPSULE PO ×2 (08:10→16:59)
[2019-04-24] MEDS: CHOLECALCIFEROL 400 UNITS TABLET (VIT D) PO (08:10)
[2019-04-24] MEDS: OPTI-GEN TAB 1 TABLET PO (08:11)
[2019-04-24] MEDS: PANTOPRAZOLE 40 MG TABLET PO (08:11)
[2019-04-24] MEDS: MAGNESIUM OXIDE 200 MG TABLET PO ×2 (08:11→21:38)
[2019-04-24 09:16] LABS: Glucose Point of Care 145 (65-105)
--- NOTE | 2019-04-24 12:49 | PM.IMPN ---
Progress Note: A&P Assessment and Plan (1) Cellulitis of arm, left: Code(s): L03.114 - Cellulitis of left upper limb Status: Acute Assessment and Plan: Aspirate culture grew MRSA. Continue IV vancomycin (#5). Doppler negative for DVT. Blood cultures pending with no growth to date. Anticipate discharge in 1 to 2 days with oral clindamycin. (2) Bursitis, olecranon: Qualifiers: Laterality: left Qualified Code(s): M70.22 - Olecranon bursitis, left elbow Code(s): M70.20 - Olecranon bursitis, unspecified elbow Status: Acute Assessment and Plan: Improving. 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 Continue to monitor with Accu-Cheks, cover with SSI. (4) CHF (congestive heart failure): Qualifiers: Heart failure type: unspecified Heart failure chronicity: acute Qualified Code(s): I50.9 - Heart failure, unspecified Code(s): I50.9 - Heart failure, unspecified Status: Acute Assessment and Plan: Acute on chronic diastolic CHF; acute phase now resolved and appears euvolemic. No crackles or lower extremity edema appreciated today. Continue his home Lasix and metolazone. (5) Hypokalemia: Code(s): E87.6 - Hypokalemia Status: Acute Assessment and Plan: Suspect secondary to diuretics. Potassium 2.5 this morning and replaced IV and PO. Continue scheduled BID potassium replacement. Likely needs potassium supplementation at discharge. Subjective Date/time seen: 04/24/19 12:00 Interval history: Mr. Martinez is an 83yo M admitted for left olecranon bursitis and cellulitis. He feels much better and his left arm is not causing him any pain at rest. Patient and his family at beside note his arm is much improved compared to days prior. He denies any chest pain, shortness of breath, or calf tenderness. He is tolerating PO intake without nausea or vomiting. Review of Systems Review of Systems: Narrative: Twelve systems were reviewed with pertinent positives and negatives as per HPI. Exam Narrative: Exam Narrative: General: Male resting comfortably in bed in no acute distress. HEENT: Normocephalic, EOMI, oral mucosa moist. Cardiovascular: Rate and rhythm are regular. Respiratory: Lungs clear to auscultation all michael. Non-labored breathing. Abdomen: Soft, non-tender, non-distended, bowel sounds present. Extremities: Peripheral pulses intact. Left elbow is erythematous, warm, and boggy; surrounding cellulitis is in within the demarcated lines. Much improved per patient. Neuro: No focal neurological deficits. Speech is clear. Objective Data Vital Signs Vital Signs: Last Vital Signs Temp 97.7 F 04/24/19 14:00 Pulse 73 04/24/19 14:00 Resp 16 04/24/19 14:00 BP 140/69 04/24/19 14:00 Pulse Ox 97 04/24/19 14:00 Intake/Output Intake/Output: Intake & Output 04/21/19 04/22/19 04/23/19 04/24/19 22:59 23:59 23:59 23:59 Intake Total 1715 960 Output Total 550 4 Balance 1165 956 Meds/Results Medications: Active Medications Generic Name Dose Route Start Last Admin Trade Name Freq PRN Reason Stop Dose Admin Acetaminophen 650 mg 04/19/19 17:05 04/24/19 03:02 Tylenol Tablet PO 650 mg Q4H PRN Administration Mild Pain (1-3) or Fever Albuterol 2.5 mg 04/19/19 23:03 04/20/19 14:08 Albuterol Sulf Neb 2.5 Mg/3 Ml INHALATION 2.5 mg Q4-6H PRN Administration shortness o
[2019-04-24 14:00] VITALS: BP 140/69; PULSE 73; RESP 16; TEMP 36.5; O2SAT 97
[2019-04-24 14:20] LABS: Glucose Point of Care 127 (65-105)
[2019-04-24 15:49] LABS: Potassium 3.4 mmol/L (3.4-5.0)
[2019-04-24] MEDS: LIDOCAINE 5% PATCH 1 PATCH TRANSDERM (17:00)
[2019-04-24 18:38] LABS: Glucose Point of Care 158 (65-105)
[2019-04-24 22:00] VITALS: BP 120/70; PULSE 71; RESP 18; TEMP 36.6; O2SAT 96
[2019-04-24 22:54] LABS: Glucose Point of Care 136 (65-105)
[2019-04-25 06:00] VITALS: BP 120/61; PULSE 67; RESP 16; TEMP 36.1; O2SAT 95
[2019-04-25 06:07] LABS: Blood Urea Nitrogen 40 mg/dL (9-20); Calcium 8.7 mg/dL (8.4-10.2); Carbon Dioxide 38 mmol/L (22-30); Chloride 88 mmol/L (98-107); Estimated CRCL calculation 50 ml/min; Estimated Glomerular Filt Rate > 60; Glucose 132 mg/dL (75-110); Phosphorus 3.4 mg/dL (2.5-4.5); Potassium 2.7 mmol/L (3.4-5.0); Sodium 132 mmol/L (137-145)
[2019-04-25] MEDS: POTASSIUM CHLORIDE 20 MEQ TABLET 80 MEQ PO (07:09)
[2019-04-25] MEDS: FERROUS SULFATE 324 MG TABLET PO (10:02)
[2019-04-25] MEDS: POTASSIUM CHLORIDE 20 MEQ TABLET.ER PO ×2 (10:02→18:18)
[2019-04-25] MEDS: PANTOPRAZOLE 40 MG TABLET PO (10:02)
[2019-04-25] MEDS: FINASTERIDE 5 MG TABLET PO (10:02)
[2019-04-25] MEDS: SIMVASTATIN 20 MG TABLET 40 MG PO (10:02)
[2019-04-25] MEDS: DABIGATRAN ETEXILATE 150 MG CAPSULE PO ×2 (10:02→18:19)
[2019-04-25] MEDS: metOLazone 2.5 MG TABLET PO (10:03)
[2019-04-25] MEDS: FUROSEMIDE 20 MG TABLET 60 MG PO ×2 (10:03→18:18)
[2019-04-25] MEDS: CALCIUM CARBONATE (OSCAL) 500 MG TABLET PO (10:03)
[2019-04-25] MEDS: CHOLECALCIFEROL 400 UNITS TABLET (VIT D) PO (10:03)
[2019-04-25] MEDS: OPTI-GEN TAB 1 TABLET PO (10:03)
[2019-04-25] MEDS: ASPIRIN 81 MG ENTERIC TABLET PO (10:03)
[2019-04-25] MEDS: MAGNESIUM OXIDE 200 MG TABLET PO (10:03)
[2019-04-25 12:25] LABS: Potassium 3.1 mmol/L (3.4-5.0)
[2019-04-25] MEDS: POTASSIUM CHLORIDE 20 MEQ TABLET 60 MEQ PO (13:14)
[2019-04-25 14:00] VITALS: BP 96/58; PULSE 70; RESP 18; TEMP 36.8; O2SAT 93
--- NOTE | 2019-04-25 14:41 | PM.DS ---
DS: Diagnosis Admitting Diagnosis Admitting Diagnosis: Cellulitis of left upper limb Discharge Diagnosis (1) Cellulitis of arm, left: Code(s): L03.114 - Cellulitis of left upper limb Status: Acute Assessment and Plan: Date of Service 04/25/19 Mr. Martinez is an 83yo M with history of chronic diastolic CHF, hypertension, and non insulin dependent type 2 diabetes who presented to the emergency department for evaluation of left arm swelling, redness, pain. He had been treated with oral doxycycline by PCP as an outpatient, then his elbow became very edematous and painful. His PCP sent him for L upper extremity doppler which revealed no DVT, and he presented to the ER for further management. He underwent ultrasound-guided drainage of his olecranon bursa which grew MRSA. He was treated with IV vancomycin for 6 days. His cellulitis and edema were much improved and he was discharged with oral clindamycin. Final blood cultures are negative. He was also noted to have some lower extremity edema as well and was diuresed with IV lasix. He reported his beauty counselor, Dr Gardner, had recently added metolazone to his regimen. Electrolytes were monitored and he was found to be hypokalemic. Potassium levels were as low as 2.5 and 2.7. Potassium was replaced with oral and IV supplementation. He was started on potassium supplementation at discharge with instructions for follow up lab work in 2 days to monitor potassium level. His hypokalemia was felt to be secondary to diuresis and his oral lasix dose was slightly decreased at discharge. (He was taking oral lasix 60mg in AM, 40mg in PM - instructed him to decrease back to 40mg BID) He was hemodynamically stable for discharge 04/25/19 with instructions to follow up with PCP within 1 week (already has an appointment for early next week), and follow up with Dr Gardner regarding lasix changes mentioned. Aspirate culture grew MRSA. Continue IV vancomycin (#6). Doppler negative for DVT. Blood cultures pending with no growth to date. Discharge with oral clindamycin and follow up with PCP for monitoring. (2) Bursitis, olecranon: Qualifiers: Laterality: left Qualified Code(s): M70.22 - Olecranon bursitis, left elbow Code(s): M70.20 - Olecranon bursitis, unspecified elbow Status: Acute Assessment and Plan: Improved. 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 Continue oral linagliptin at discharge. (4) CHF (congestive heart failure): Qualifiers: Heart failure type: unspecified Heart failure chronicity: acute Qualified Code(s): I50.9 - Heart failure, unspecified Code(s): I50.9 - Heart failure, unspecified Status: Acute Assessment and Plan: Acute on chronic diastolic CHF; acute phase now resolved and appears euvolemic. No crackles or lower extremity edema appreciated today. Continue oral Lasix and metolazone. (5) Hypokalemia: Code(s): E87.6 - Hypokalemia Status: Acute Assessment and Plan: Suspect secondary to diuretics. K as low as 2.5 and was replacing with 80 to 100meq KCl per day while admitted. Discharged with potassium supplementation, follow up with PCP. Repeat labs 04/26. DS: Summary Time Spent with Patient Time attestation: Total time spent providing and/or coordinating discharge services: 35 minutes Exam Narrative: Exam Narrative: General: Male resting comfortably in bed in no acute distress. HEENT
[2019-04-25 15:02] LABS: Glucose Point of Care 119 (65-105)
[2019-04-25] MEDS: LIDOCAINE 5% PATCH 1 PATCH TRANSDERM (18:17)
== END 2019-04-25 18:45 | disposition home or self-care (01) | DRG 557 ==
LOC: ANHED 17:13 → ANH2MED 17:18
PROVIDERS: Emergency Medicine; Internal Medicine; Physician Assistant; Radiology Diagnostic Radiology; Admitting Provider Internal Medicine; Emergency Provider Emergency Medicine; PCP Internal Medicine; Visit Provider Physician Assistant
DX: M70.22 Olecranon bursitis, left elbow (principal); I50.33 Acute on chronic diastolic (congestive) heart failure; L03.114 Cellulitis of left upper limb; E78.00 Pure hypercholesterolemia, unspecified; I50.9 Heart failure, unspecified; E11.9 Type 2 diabetes mellitus without complications; I48.91 Unspecified atrial fibrillation; M19.90 Unspecified osteoarthritis, unspecified site; I10 Essential (primary) hypertension; N40.0 Benign prostatic hyperplasia without lower urinary tract symptoms; E78.5 Hyperlipidemia, unspecified; M48.061 Spinal stenosis, lumbar region without neurogenic claudication; M35.3 Polymyalgia rheumatica; G47.33 Obstructive sleep apnea (adult) (pediatric); Z95.1 Presence of aortocoronary bypass graft; Z95.5 Presence of coronary angioplasty implant and graft; I11.9 Hypertensive heart disease without heart failure; Z87.891 Personal history of nicotine dependence; E87.6 Hypokalemia; A49.02 Methicillin resistant Staphylococcus aureus infection, unspecified site
CPT/HCPCS: 20605; 20611; 36415; 80048; 80053; 80202; 82607; 82728; 82746; 83540; 83550; 83735; 84100; 84132; 84466; 85025; 85027; 86140; 87040; 87070; 87075; 87147; 87186; 87205; 88108; 89051; 89060; 93971; 94640; 96365; 97110; 97161; 97165; 99285; A9270; J1815; J3370; J3480; J7050

== ENCOUNTER 2019-05-08 11:10 | Inpatient (IN) | payer MEDICARE, SELFPAY ==
--- NOTE | ~2019-05-08 | XR_ITS ---
EXAMINATION: XR chest PICC line DATE: 05/12/2019 12:32 INDICATION: PICC line placement TECHNIQUE: frontal view of the chest was obtained on 2 radiographs. COMPARISON: Chest radiograph dated 02/15/2019 FINDINGS: Right upper extremity peripherally inserted central venous catheter (PICC) which extends into the sup erior vena cava below the level of the soledad. The catheter does not extend into the right right atri um and is likely in the distal superior vena cava obscured by the leads of a 3-lead cardiac pacemaker . The pacemaker lead tips project over the expected locations of the right atrial appendage, right pu lmonary outflow tract and overlying the left ventricle likely having traversed the coronary sinus. Opacity left lower lung zone consistent with small left pleural effusion and associated basilar atele ctasis and/or pneumonia. Tiny right pleural effusion with minimal streaky right basilar atelectasis. No pulmonary edema or pneumothorax. Cardiomegaly. IMPRESSION: 1. Right PICC line tip in the caudal superior vena cava. 2. Tiny right and decreasing small left pleural effusions with basilar atelectasis and/or pneumonia. 3. Cardiomegaly. Reviewed, dictated and finalized at location A. IMPRESSION: 1. Right PICC line tip in the caudal superior vena cava. 2. Tiny right and decreasing small left pleural effusions with basilar atelecta sis and/or pneumonia. 3. Cardiomegaly.
--- NOTE | ~2019-05-08 | XR_ITS ---
EXAMINATION: XR elbow LT min 3V DATE: 05/08/2019 11:38 INDICATION: Left elbow pain and erythema. TECHNIQUE: Anteroposterior, two oblique and lateral views of the left elbow were obtained. COMPARISON: Left elbow ultrasound dated 04/19/2019. FINDINGS: Alignment is normal. No fracture. Joint spaces are normal. Tiny marginal osteophytes anteriorly at th e ulnotrochlear articulation consistent with minimal osteoarthritis. No left elbow joint effusion. Ti ny linear enthesopathic ossification at the distal triceps tendon. Focal soft tissue swelling with in creased density posterior to the olecranon which could be seen with hematoma or olecranon bursitis. A dditional soft tissue swelling with more reticulated pattern of likely subcutaneous edema posterior t o the distal upper arm over the dorsum of the forearm. No evident soft tissue gas. IMPRESSION: 1. Focal dense soft tissue swelling overlying the olecranon suggestive of recurrent olecranon bursiti s. 2. No left elbow joint effusion or osseous abnormality. Reviewed, dictated and finalized at location A. IMPRESSION: 1. Focal dense soft tissue swelling overlying the olecranon suggestive of recur rent olecranon bursitis. 2. No left elbow joint effusion or osseous abnormality.
[2019-05-08 11:14] VITALS: BP 126/72; PULSE 50; RESP 16; TEMP 36.5; O2SAT 100
--- NOTE | 2019-05-08 11:21 | ED.WOUNDLAC ---
HPI - Wound/Laceration General Chief Complaint: Wound/Laceration Stated Complaint: Wound Time Seen by Provider: 05/08/19 11:14 Source: patient Mode of arrival: ambulatory Limitations: no limitations History of Present Illness HPI narrative: An 83 y/o male presents to the ED with c/o left elbow redness and swelling. Pt states that he has had cellulitis and MRSA in his left elbow intermittently for the last year. He was recently admitted to [facility] for 5 days and was give IV antibiotics. The patient was sent home with a 10 days prescription of Clindamycin and finished the antibiotics on 05/07/19. He adds that the left elbow redness and swelling started after he finished the Clindamycin. Pt denies fever, chills, CP,and SOB. He states that he has taken Prednisone for 3 yearas due to his fibromyalgia, but has not taken them in 3 weeks. Onset (ago): year(s) (1) Extremity Location: Left: elbow Context: other (chronic infection) Associated symptoms: none Related Data Home Medications Medication Instructions Recorded Confirmed antiarthritic combination no.2 900 900 mg PO DAILY 01/25/19 05/08/19 mg tablet aspirin 81 mg tablet,delayed 81 mg PO EVERY OTHER DAY 01/25/19 05/08/19 release calcium carbonate 600 mg calcium 600 mg PO DAILY 01/25/19 05/08/19 (1,500 mg) tablet cholecalciferol (vitamin D3) 10 400 unit PO DAILY 01/25/19 05/08/19 mcg (400 unit) capsule dabigatran etexilate 150 mg capsule 150 mg PO BID 01/25/19 05/08/19 finasteride 5 mg tablet 5 mg PO DAILY 01/25/19 05/08/19 vvnqterk-rup-jugjw acid 300 1 tablet PO DAILY 01/25/19 05/08/19 mcg-lycopene 600 mcg-lutein 300 mcg tablet ramipril 10 mg capsule 10 mg PO DAILY 01/25/19 05/08/19 simvastatin 40 mg tablet 40 mg PO DAILY 01/25/19 05/08/19 vit C 250 mg-E 200 unit-zinc 40 2 tablet PO DAILY 01/25/19 05/08/19 mg-copper 1 sl-ihrhve-oqvusp capsule metolazone 2.5 mg tablet 2.5 mg PO .qod tablet 04/19/19 05/08/19 citalopram [Celexa] 10 mg PO DAILY 05/08/19 linagliptin [Tradjenta] 5 mg PO QAM 05/08/19 Allergies Allergy/AdvReac Type Severity Reaction Status Date / Time Cat Dander Allergy Mild ITCHY EYES Uncoded 05/08/19 10:45 Review of Systems Review of Systems: All systems reviewed & are unremarkable except as noted in HPI and below Constitutional: Constitutional: Denies chills and Denies fever(s) Cardiovascular: Cardiovascular: Denies chest pain Respiratory: Respiratory: Denies dyspnea Integumentary/Breasts: Skin/Breast: Reports swelling (left elbow) and Reports erythema (left elbow) [facility] Past Medical History Medical History (Updated 05/08/19 @ 12:17 by Shiraz Perez DO) Abnormal EKG Arthritis Benign essential hypertension BMI 23.0-23.9, adult BMI 24.0-24.9, adult BPH (benign prostatic hyperplasia) CAD (coronary artery disease) Coronary stents 1997, 1 vessel bypass in 2001, stenting of grafted vessel in 2005 Cataract of right eye CHF (congestive heart failure) Echocardiogram March 30, 2019 performed at [facility] (Dr. Gardner) Mild left ventricular systolic dysfunction with EF of 49%, moderate left ventricular enlargement, moderate concentric left ventricular hypertrophy, severe left atrial enlargement, moderate right atrial enlargement, moderate to severe mitral valve regurgitation, mild aortic stenosis, mild aortic valve regurgitation, moderate to severe tricuspid regurgitation, severe pulmonary hypertension DM type 2 (diabetes mellitus, type 2) A1c of 6.0 2016 Fibromyalgia Follow up History of angina History of GI bleed Upper GI bleed due to duodenal ulcer May 2015 with EGD performed by Dr. Saavedra Hypercholesteremia Hyperlipidemia Hypertensive nephropathy Lumbar stenosis BOOGIE on CPAP Paroxysmal atrial fibrillation Pedal edema PMR (polymyalgia rheumatica) Pneumonia Severe pulmonary arterial systolic hypertension Surgical History Surgical History History of pj
[2019-05-08 11:31] LABS: Basophils Percent Auto 0.5 % (0.2-1.2); Eosinophils Absolute Auto 0.2 K/mm3 (0-0.3); Eosinophils Percent Auto 2.1 % (0-4.4); Hematocrit 42.5 % (42.0-52.0); Immature Granulocyte Absolute 0.17 K/mm3 (0.00-0.031); Immature Granulocyte Percent A 2.1 % (0-0.5); Lymphocytes Absolute Auto 0.99 K/mm3 (0.9-3.2); Mean Corpuscular HGB Conc 30.6 g/dl (32-36); Mean Corpuscular Hemoglobin 26.3 pg (26-34); Mean Corpuscular Volume 85.9 fl (80-100); Mean Platelet Volume 9.9 fl (7.4-10.4); Monocytes Percent Auto 11.6 % (2.6-8.5); Neutrophils Percent Auto 71.7 % (45.5-73.1); Platelet Count Result 308 k/mm3 (150-375); Red Blood Count 4.95 M/mm3 (4.6-6.20); Red Cell Distribution Width 20.4 % (11.5-14.5); White Blood Count 8.3 K/mm3 (4.5-10.0)
[2019-05-08 11:35] VITALS: PULSE 76; RESP 20; O2SAT 98
[2019-05-08 11:42] LABS: INR 1.4; Lactic Acid Reflex 1.4 mmol/L (0.7-2.1); Prothrombin Time 16.3 Seconds (11.1-14.7)
[2019-05-08 11:43] LABS: Alanine Aminotransferase 24 U/L (4-50); Albumin Level 3.8 g/dL (3.5-5.1); Alkaline Phosphatase 54 U/L (38-126); Aspartate Amino Transferase 31 U/L (17-59); Bilirubin,Total 0.4 mg/dL (0.2-1.3); Blood Urea Nitrogen 39 mg/dL (9-20); Calcium 9.2 mg/dL (8.4-10.2); Carbon Dioxide 26 mmol/L (22-30); Chloride 106 mmol/L (98-107); Estimated CRCL calculation 44 ml/min; Estimated Glomerular Filt Rate 58; Glucose 115 mg/dL (75-110); Partial Thromboplastin Time 37.7 SECONDS (22.3-36.8); Potassium 4.9 mmol/L (3.4-5.0); Sodium 138 mmol/L (137-145)
--- NOTE | 2019-05-08 13:50 | ADMGEN ---
This patient, Shiraz Martinez, was admitted to 3 [facility] Surg Room 304-02. Patient/family oriented to hospital policies and general routines including ID bracelet, bed and alarms, visiting hours, pain management, procedures, bathroom and other care routines, personal items, smoking policy, room service/diet, and visiting hours. Valuables list has been completed. Information on how to activate the Rapid Response Team has been discussed. Patient/Family are encouraged to report perceived risks to care and to ask questions if they do not understand what they are told or what they should do.
[2019-05-08 14:31] VITALS: BP 128/70; PULSE 57; RESP 16; TEMP 36.5; O2SAT 100
--- NOTE | 2019-05-08 15:00 | PM.IMHP ---
H&P: HPI History of Present Illness Chief complaint: Left elbow swelling and redness. <Alyse Jasmine PA-C - Last Filed: 05/08/19 17:20> Narrative: Shiraz Martinez is an 83-year-old male with multiple medical problems including coronary artery disease, congestive heart failure, type 2 diabetes mellitus, hypertension, paroxysmal atrial fibrillation, polymyalgia rheumatica, and several other comorbidities who presented to the emergency department earlier this morning for evaluation of left elbow swelling and redness. It sounds as though he has had issues with olecranon bursitis over the years, and sometime in March once again developed problems with the left elbow. He was prescribed 2 rounds of doxycycline after being evaluated by his primary care provider. Unfortunately, he continued to have erythema and discomfort at the left elbow and eventually developed diffuse edema of the left upper extremity. He was then admitted to the hospital 04/19/2019And was treated with IV vancomycin for septic olecranon bursitis. Joint was aspirated and did grow out MRSA. He was discharged on clindamycin, which he finished yesterday. Unfortunately, he continues to have erythema and edema of the left elbow and thus he was sent in today for further evaluation. He has no pain with passive or active range of motion. In fact, he has no pain in the elbow unless that is palpated or he bumps it on something. He has not had fever, chills, or sweats. No nausea or vomiting. He does mention 4 to 5 loose stools per day, which has been ongoing for about 3 to 4 months and he has blamed that on his medications. It is not necessarily worse since taking the clindamycin. <Alyse Jasmine PA-C - Last Filed: 05/08/19 17:20> Review of Systems Review of Systems: Narrative: Twelve systems were reviewed with pertinent positives and negatives as per HPI. Glucose has been stable. No significant highs or lows. He was previously on daily prednisone, but stopped that several weeks ago due to infection. Except as documented, all other systems were reviewed and are negative. <Alyse Jasmine PA-C - Last Filed: 05/08/19 17:20> [facility] Past Medical History Medical History: Medical History (Updated 05/08/19 @ 17:12 by Alyse Jasmine PA-C) Arthritis Benign essential hypertension BPH (benign prostatic hyperplasia) CAD (coronary artery disease) Coronary stents 1997, 1 vessel bypass in 2001, stenting of grafted vessel in 2005 CHF (congestive heart failure) Echocardiogram March 30, 2019 performed at [facility] (Dr. Gardner) Mild left ventricular systolic dysfunction with EF of 49%, moderate left ventricular enlargement, moderate concentric left ventricular hypertrophy, severe left atrial enlargement, moderate right atrial enlargement, moderate to severe mitral valve regurgitation, mild aortic stenosis, mild aortic valve regurgitation, moderate to severe tricuspid regurgitation, severe pulmonary hypertension DM type 2 (diabetes mellitus, type 2) A1c of 6.3% in January 2019. Fibromyalgia History of GI bleed Upper GI bleed due to duodenal ulcer May 2015 with EGD performed by Dr. Saavedra Hypercholesteremia Hyperlipidemia Hypertensive nephropathy Lumbar stenosis MRSA infection Left olecranon bursa. BOOGIE on CPAP Paroxysmal atrial fibrillation PMR (polymyalgia rheumatica) Previously on long-term prednisone. Severe pulmonary arterial systolic hypertension <Alyse Jasmine PA-C - Last Filed: 05/08/19 17:20> Surgical History Surgical History: Surgical History History of angioplasty x3. History of appendectomy History of bilateral cataract extraction History of inguinal hernia repair Left inguinal hernia repair History of nasal septoplasty History of tonsillectomy History of vascular surgery Hx of CABG Hx of cardiac cath Hx of heart artery stent x6. <Alyse Jasmine PA-C - Las
[2019-05-08] MEDS: FUROSEMIDE 40 MG TABLET PO (18:45)
[2019-05-08] MEDS: POTASSIUM CHLORIDE 20 MEQ TABLET.ER 40 MEQ PO (18:45)
[2019-05-08] MEDS: ACIDOPHILUS/BULGARICUS CHEWABLE TABLET 1 TABLET PO (18:45)
[2019-05-08 18:53] LABS: Glucose Point of Care 159 (65-105)
[2019-05-08] MEDS: OPTI-GEN TAB 2 TABLET PO (20:55)
[2019-05-08] MEDS: CITALOPRAM HYDROBROMIDE 10 MG TABLET PO (20:55)
[2019-05-08] MEDS: SIMVASTATIN 20 MG TABLET 40 MG PO (20:55)
[2019-05-08] MEDS: PANTOPRAZOLE 40 MG TABLET PO (20:56)
[2019-05-08 21:22] LABS: Glucose Point of Care 112 (65-105)
[2019-05-08 21:26] VITALS: BP 120/66; PULSE 70; RESP 16; TEMP 37.1; O2SAT 97
[2019-05-09 06:00] VITALS: BP 127/71; PULSE 70; RESP 18; TEMP 37.2; O2SAT 98
[2019-05-09 06:23] LABS: Basophils Percent Auto 0.5 % (0.2-1.2); Eosinophils Absolute Auto 0.3 K/mm3 (0-0.3); Eosinophils Percent Auto 3.4 % (0-4.4); Hematocrit 38.8 % (42.0-52.0); Hemoglobin 11.9 g/dL (14.0-18.0); Immature Granulocyte Absolute 0.12 K/mm3 (0.00-0.031); Immature Granulocyte Percent A 1.5 % (0-0.5); Lymphocytes Absolute Auto 1.08 K/mm3 (0.9-3.2); Lymphocytes Percent Auto 13.3 % (18.3-44.2); Mean Corpuscular HGB Conc 30.7 g/dl (32-36); Mean Corpuscular Hemoglobin 26.4 pg (26-34); Mean Corpuscular Volume 86.2 fl (80-100); Mean Platelet Volume 10.2 fl (7.4-10.4); Monocytes Absolute Auto 1.1 K/mm3 (0.1-0.6); Monocytes Percent Auto 13.1 % (2.6-8.5); Neutrophils Absolute Auto 5.6 K/mm3 (1.3-6.7); Neutrophils Percent Auto 68.2 % (45.5-73.1); Platelet Count Result 263 k/mm3 (150-375); Red Cell Distribution Width 20.4 % (11.5-14.5); White Blood Count 8.1 K/mm3 (4.5-10.0)
[2019-05-09 07:45] LABS: Glucose Point of Care 129 (65-105)
[2019-05-09 07:51] LABS: Blood Urea Nitrogen 31 mg/dL (9-20); CRP 1.2 mg/dL (<1.0); Calcium 8.6 mg/dL (8.4-10.2); Carbon Dioxide 25 mmol/L (22-30); Chloride 103 mmol/L (98-107); Estimated CRCL calculation 59 ml/min; Estimated Glomerular Filt Rate > 60; Glucose 162 mg/dL (75-110); Potassium 4.3 mmol/L (3.4-5.0); Sodium 135 mmol/L (137-145)
[2019-05-09] MEDS: FERROUS SULFATE 324 MG TABLET PO (09:26)
[2019-05-09] MEDS: POTASSIUM CHLORIDE 20 MEQ TABLET.ER 40 MEQ PO ×2 (09:27→17:29)
[2019-05-09] MEDS: OPTI-GEN TAB 1 TABLET PO (09:27)
[2019-05-09] MEDS: FINASTERIDE 5 MG TABLET PO (09:27)
[2019-05-09] MEDS: ACIDOPHILUS/BULGARICUS CHEWABLE TABLET 1 TABLET PO ×2 (09:27→17:29)
[2019-05-09] MEDS: PANTOPRAZOLE 40 MG TABLET PO ×2 (09:27→20:23)
[2019-05-09] MEDS: FUROSEMIDE 40 MG TABLET PO ×2 (09:27→17:29)
[2019-05-09] MEDS: ramipriL 5 MG CAPSULE 10 MG PO (09:28)
--- NOTE | 2019-05-09 10:55 | PM.CNOR ---
Assessment and Plan Assessment and plan (1) Septic olecranon bursitis of left elbow: Code(s): M71.122 - Other infective bursitis, left elbow Status: Acute Assessment and Plan: 83-year-old male with septic left olecranon bursitis. This will need to be surgically debrided to give the best possible chance for recovery, and this is pending medical clearance. Risks and potential complications were discussed in detail and questions answered. Will await Dr. Coyne's recommendations postop to determine type, length and route of antibiotic therapy. Thank you for the consultation. History of Present Illness HPI Consult date: 05/09/19 Consult reason: other (Chronic septic bursitis left elbow) Chief complaint: Left elbow swelling and redness. Narrative: 83-year-old male who has got a left elbow septic bursitis. This has been treated with oral and IV antibiotics over a lengthy period of time. Aspiration was done about three weeks ago which was positive for MRSA. After a short course of IV antibiotics he was started on clindamycin. This has not resolved the issue. Prior to the aspiration he had been on doxycycline. The patient himself states that it is not as red or swollen as it had been previously however it is not resolved. Review of Systems Constitutional: Constitutional: Reports no additional constitutional complaints, Denies excessive sweating and Denies fatigue Eyes: Eyes: Reports no additional eye complaints ENT: Reports system reviewed and no additional complaints, except as documented Cardiovascular: Cardiovascular: Denies chest pain at rest and Denies dyspnea Respiratory: Respiratory: Reports no additional respiratory complaints and Denies dyspnea Gastrointestinal: Gastrointestinal: Reports no additional gastrointestinal complaints Musculoskeletal: Musculoskeletal: Reports as per HPI Integumentary/Breasts: Skin/Breast: Reports system reviewed and no additional complaints, except as docu Neurologic: Reports as per HPI Endocrine: Endocrine: Denies excessive sweating and Denies fatigue Hematologic/Lymphatic: Hematologic/Lymphatic: Denies easy bleeding and Denies easy bruising PMFSH Past Medical History Medical History (Updated 05/09/19 @ 11:08 by Matt Lu MD) Arthritis Benign essential hypertension BPH (benign prostatic hyperplasia) CAD (coronary artery disease) Coronary stents 1997, 1 vessel bypass in 2001, stenting of grafted vessel in 2005 CHF (congestive heart failure) Echocardiogram March 30, 2019 performed at [facility] (Dr. Gardner) Mild left ventricular systolic dysfunction with EF of 49%, moderate left ventricular enlargement, moderate concentric left ventricular hypertrophy, severe left atrial enlargement, moderate right atrial enlargement, moderate to severe mitral valve regurgitation, mild aortic stenosis, mild aortic valve regurgitation, moderate to severe tricuspid regurgitation, severe pulmonary hypertension DM type 2 (diabetes mellitus, type 2) A1c of 6.3% in January 2019. Fibromyalgia History of GI bleed Upper GI bleed due to duodenal ulcer May 2015 with EGD performed by Dr. Saavedra Hypercholesteremia Hyperlipidemia Hypertensive nephropathy Lumbar stenosis MRSA infection Left olecranon bursa. BOOGIE on CPAP Paroxysmal atrial fibrillation PMR (polymyalgia rheumatica) Previously on long-term prednisone. Severe pulmonary arterial systolic hypertension Surgical History Surgical History (Updated 05/09/19 @ 11:01 by Matt Lu MD) History of angioplasty x3. History of appendectomy History of bilateral cataract extraction History of inguinal hernia repair Left inguinal hernia repair History of nasal septoplasty History of pacemaker History of tonsillectomy History of vascular surgery Hx of CABG Hx of cardiac cath Hx of heart artery stent x6. Family History Family History Mother Hypertension
--- NOTE | 2019-05-09 11:23 | PM.IMPN ---
Progress Note: A&P Assessment and Plan (1) Olecranon bursitis of left elbow: Code(s): M70.22 - Olecranon bursitis, left elbow Status: Deleted Assessment and Plan: In the last month or so, he has been treated with 2 rounds of doxycycline, IV vancomycin for 6 days while in the hospital, and has completed a course of clindamycin. At this juncture, I am not certain it is even appropriate to start antibiotics as he is afebrile with a normal white count. Dr. Lu consulted, and will defer to him. 05/09/19 11:23 Patient 83-year-old male was recently treated for left elbow cellulitis and was positive for MRSA initially in the hospital was treated with vancomycin and was discharged home on clindamycin, patient states he took his 10 day course of clindamycin and soon after finishing his antibiotic he had developed redness pain swelling in the left elbow painful to move, he presented emergency department yesterday, he denies any drainage of fever or chills, he was started on vancomycin, and blood cultures are drawn again, seen by orthopedic surgeon recommending I and D to further evaluate and treat however patient also has a history of coronary artery disease he had been seen by furniture mover driver at the [facility] will consult furniture mover driver for cardiac clearance and further recommendation, (2) DM type 2 (diabetes mellitus, type 2): Qualifiers: Diabetes mellitus complication status: without complication Diabetes mellitus [facility] insulin use: without [facility] use Qualified Code(s): E11.9 - Type 2 diabetes mellitus without complications Code(s): E11.9 - Type 2 diabetes mellitus without complications Status: Acute Assessment and Plan: May take Tradnatalianta from home. Initiate sliding scale insulin, Accu-Cheks, and hypoglycemic protocol. Hemoglobin A1c was 6.3% in January 2019. (3) CHF (congestive heart failure): Qualifiers: Heart failure chronicity: acute Heart failure type: unspecified Qualified Code(s): I50.9 - Heart failure, unspecified Code(s): I50.9 - Heart failure, unspecified Status: Acute Assessment and Plan: Patient with mixed systolic and diastolic dysfunction on previous echocardiogram. He is clinically compensated. Continue furosemide and monitor volume status. (4) Paroxysmal atrial fibrillation: Code(s): I48.0 - Paroxysmal atrial fibrillation Status: Acute Assessment and Plan: Currently sounds to be in the normal sinus rhythm. He is not on any rate-controlling medications that I can see. Hold dabigatran in anticipation of possible procedure tomorrow. (5) Septic olecranon bursitis of left elbow: Code(s): M71.122 - Other infective bursitis, left elbow Status: Acute Assessment and Plan: Patient is being treated with vancomycin patient is seen by orthopedic surgeon and the plan is above Subjective Date/time seen: 05/09/19 11:23 Patient 83-year-old male was recently treated for left elbow cellulitis and was positive for MRSA initially in the hospital was treated with vancomycin and was discharged home on clindamycin, patient states he took his 10 day course of clindamycin and soon after finishing his antibiotic he had developed redness pain swelling in the left elbow painful to move, he presented emergency department yesterday, he denies any drainage of fever or chills, he was started on vancomycin, and blood cultures are drawn again, seen by orthopedic surgeon recommending I and D to further evaluate and treat however patient also has a history of coronary artery disease he had been seen by furniture mover driver at the [facility] will consult furniture mover driver for cardiac clearance and further recommendation, Review of Systems Review of Systems: All systems reviewed & are unremarkable except as noted in HPI and below Exam Const: General: comfortable and no acute distress HENMT: General nose ex
[2019-05-09 12:27] LABS: Glucose Point of Care 114 (65-105)
[2019-05-09 14:00] VITALS: BP 111/54; PULSE 69; RESP 16; TEMP 37.1; O2SAT 96
--- NOTE | 2019-05-09 16:09 | PM.CNCAR ---
Assessment and Plan Assessment and plan (1) Preoperative cardiovascular examination: Code(s): Z01.810 - Encounter for preprocedural cardiovascular examination Status: Acute Assessment and Plan: patient is well compensated, asymptomatic without new or progressive exertional angina or CHF. Patient is hemodynamically stable. Patient may be considered at moderate risk but no further invasive cardiovascular workup indicated given lack of symptoms and good exercise tolerance able to perform greater than 4 METS of activity without difficulty. Patient may proceed as scheduled without further testing if indicated. Will check 12 lead EKG. (2) Paroxysmal atrial fibrillation: Code(s): I48.0 - Paroxysmal atrial fibrillation Status: Acute Assessment and Plan: Stable, anticoagulation held preoperatively. Resume as soon as possible postoperatively per orthopedic surgery. (3) CAD (coronary artery disease): Code(s): I25.10 - Atherosclerotic heart disease of [place] coronary artery without angina pectoris Status: Acute Assessment and Plan: asymptomatic. Continue current medical therapy. Continue statin. (4) CHF (congestive heart failure): Qualifiers: Heart failure type: unspecified Heart failure chronicity: acute Qualified Code(s): I50.9 - Heart failure, unspecified Code(s): I50.9 - Heart failure, unspecified Status: Acute Assessment and Plan: Compensated. [place] Heart Association class I-II symptoms. Continue home cardiovascular medical therapy. Monitor volume status cautious not to volume overload postoperatively. (5) Mitral regurgitation: Code(s): I34.0 - Nonrheumatic mitral (valve) insufficiency Status: Acute Assessment and Plan: Moderate to severe. Asymptomatic at this time. (6) Pulmonary hypertension: Code(s): I27.20 - Pulmonary hypertension, unspecified Status: Acute Assessment and Plan: Severe on most recent echocardiogram. Patient will compensated and currently asymptomatic. Monitor respiratory status closely perioperatively. History of Present Illness History of Present Illness Consult date/time: Date of service: 05/09/19 16:09 This is a cardiology consultation at the request of Dr. Olson for our opinion regarding cardiovascular risk assessment prior to left olecranon bursitis I&D. Requesting physician: Guru Olson MD Consult reason: pre-op evaluation Reason For Visit: Left elbow swelling and redness. Narrative: Patient is a very pleasant 83-year-old gentleman with a past medical history significant for coronary artery disease, ischemic cardiomyopathy EF 49% 03/30/2019with known chronic total occlusion of the LAD, paroxysmal atrial fibrillation with sick sinus syndrome status post pacemaker, chronic systolic and diastolic heart failure, moderate to severe mitral regurgitation, severe pulmonary hypertension, hypertension, dyslipidemia on chronic anticoagulation with Pradaxa followed by Dr. Gardner at [facility] who presented to the hospital and was admitted 05/08/2019 due to worsening swelling, redness and discomfort of the left elbow. He has had recurring issues with olecranon bursitis and more recently treated with rounds of doxycycline which were overall in successful. He then developed worsening edema of the left upper extremity and was admitted 04/19/2019 treated with IV vancomycin for septic olecranon bursitis. The aspirated joint revealed MRSA and he was discharged on clindamycin. However, he returned due to ongoing pain and erythema. Orthopedic surgery has seen the patient and has recommended surgical debridement scheduled for tomorrow. He denies chest pain, exertional shortness of breath, orthopnea, PND, lower extremity edema, significant weight gain or weight loss, hair skin or nail changes, heat or cold intolerance. He denies recent illnesses, fevers, chills or cough.
--- NOTE | 2019-05-09 16:23 | ECG_ITS ---
Measurements Intervals [place] Rate: 71 P: DE: 0 QRS: 124 QRSD: 124 T: 16 QT: 428 QTc: 466 Interpretive Statements ELECTRONIC VENTRICULAR PACEMAKER VENTRICULAR PREMATURE COMPLEX PROBABLY UNDERLYING ATRIAL FIBRILLATION BASELINE ARTIFACT- II, III, AVR NO FURTHER INTERPRETATION IS POSSIBLE ABNORMAL ECG Electronically Signed On 05-09-2019 18:51:48 CDT by Lázaro Segovia D.O.
[2019-05-09 17:18] LABS: Glucose Point of Care 91 (65-105)
[2019-05-09] MEDS: ACETAMINOPHEN 500 MG TABLET 1000 MG PO (19:21)
[2019-05-09] MEDS: SIMVASTATIN 20 MG TABLET 40 MG PO (20:23)
[2019-05-09] MEDS: CITALOPRAM HYDROBROMIDE 10 MG TABLET PO (20:23)
[2019-05-09] MEDS: OPTI-GEN TAB 2 TABLET PO (20:23)
[2019-05-09 20:52] LABS: Glucose Point of Care 190 (65-105)
[2019-05-09 21:28] VITALS: BP 97/52; PULSE 64; RESP 16; TEMP 37.2; O2SAT 95
[2019-05-09 22:00] VITALS: BP 108/67
[2019-05-10] VITALS (16 sets, daily range): BP systolic 94–126; BP diastolic 50–82; PULSE 70–73; RESP 14–23; TEMP 36.4–37.1; O2SAT 93–100
[2019-05-10 05:58] LABS: Estimated CRCL calculation 54 ml/min; Estimated Glomerular Filt Rate > 60
[2019-05-10 08:15] LABS: Glucose Point of Care 120 (65-105)
--- NOTE | 2019-05-10 09:07 | PC.NURSE ---
To OR per bed, IV #20 RT FA.
--- NOTE | 2019-05-10 10:02 | WPDANESEPPF ---
Anes - Initial Pre Proc Eval Procedure: Operation Date: 05/10/19 10:30 Proposed Procedures p Incision and Drainage Left Septic Olecranon Bursitis with Closure - Matt Lu MD Date/Time: 05/10/19 10:02 Surgeon: Guru Olson MD Pre Op Diagnosis: Left elbow swelling and redness. Patient Data Age: 83 Gender: M Height: 6 ft 1 in Weight: 77.9 kg Last Vital Signs Temp 36.6 C 05/10/19 09:29 Pulse 71 05/10/19 09:29 Resp 14 05/10/19 09:29 BP 124/79 05/10/19 09:29 Pulse Ox 97 05/10/19 09:29 Allergies Allergy/AdvReac Type Severity Reaction Status Date / Time Cat Dander Allergy Mild ITCHY EYES Uncoded 05/08/19 10:45 Home Medications Medication Instructions Recorded Confirmed Type omeprazole 40 mg capsule,delayed 40 mg PO DAILY #30 cap 12/20/18 05/08/19 Rx release dabigatran etexilate 150 mg capsule 150 mg PO BID 01/25/19 05/08/19 History finasteride 5 mg tablet 5 mg PO DAILY 01/25/19 05/08/19 History hmabtodp-dzh-atqcb acid 300 1 tablet PO DAILY 01/25/19 05/08/19 History mcg-lycopene 600 mcg-lutein 300 mcg tablet ramipril 10 mg capsule 10 mg PO DAILY 01/25/19 05/08/19 History simvastatin 40 mg tablet 40 mg PO HS 01/25/19 05/08/19 History vit C 250 mg-E 200 unit-zinc 40 2 tablet PO HS 01/25/19 05/08/19 History mg-copper 1 ol-iryapu-pvbpez capsule ferrous sulfate 325 mg PO DAILY 30 Days #30 tablet 04/25/19 05/08/19 Rx furosemide 40 mg PO BID #0 tablet 04/25/19 05/08/19 Rx Lactobacillus acidoph-L.bulgar 1 tablet PO BID 05/08/19 05/08/19 History [Floranex] citalopram [Celexa] 10 mg PO HS 05/08/19 05/08/19 History linagliptin [Tradjenta] 5 mg PO QAM 05/08/19 05/08/19 History potassium chloride [K-Tab] 40 meq PO BID 05/08/19 05/08/19 History Laboratory Tests 05/09/19 05/09/19 05/09/19 12:24 17:15 20:27 Creatinine Estim Creat Clear Calc Estimated GFR POC Capillary Glucose 114 mg/dl H mg/dl 91 mg/dl mg/dl 190 mg/dl H mg/dl (65-105) (65-105) (65-105) 05/10/19 05/10/19 05:14 08:12 Creatinine 1.00 mg/dL mg/dL (0.7-1.3) Estim Creat Clear Calc 54 ml/min ml/min Estimated GFR > 60 (59 - ) POC Capillary Glucose 120 mg/dl H mg/dl (65-105) Patient hx anesthesia problems: none Family hx anesthesia problems: none PMFSH Past Medical History Medical History Arthritis Benign essential hypertension BPH (benign prostatic hyperplasia) CAD (coronary artery disease) Coronary stents 1997, 1 vessel bypass in 2001, stenting of grafted vessel in 2005 CHF (congestive heart failure) Echocardiogram March 30, 2019 performed at [facility] (Dr. Gardner) Mild left ventricular systolic dysfunction with EF of 49%, moderate left ventricular enlargement, moderate concentric left ventricular hypertrophy, severe left atrial enlargement, moderate right atrial enlargement, moderate to severe mitral valve regurgitation, mild aortic stenosis, mild aortic valve regurgitation, moderate to severe tricuspid regurgitation, severe pulmonary hypertension DM type 2 (diabetes mellitus, type 2) A1c of 6.3% in January 2019. Fibromyalgia History of GI bleed Upper GI bleed due to duodenal ulcer May 2015 with EGD performed by Dr. Saavedra Hypercholesteremia Hyperlipidemia Hypertensive nephropathy Lumbar stenosis MRSA infection Left olecranon bursa. BOOGIE on CPAP Paroxysmal atrial fibrillation PMR (polymyalgia rheumatica) Previously on long-term prednisone. Severe pulmonary arterial systolic hypertension Surgical History Surgical History History of angioplasty x3. History of appendectomy History of bilateral cataract extraction History of inguinal hernia repair Left inguinal hernia repair History of nasal septoplasty History of pacemaker History of tonsillectomy History of vascular surgery
[2019-05-10] MEDS: LACTATED RINGERS 1,000 ML 30 ML IV CONT ×2 (12:32)
--- NOTE | 2019-05-10 12:40 | P.OP_ITS ---
Procedure Note - Detailed Date of procedure: 05/10/19 Pre-op diagnosis: L olecranon bursitis failred outpatient treatment Septic left olecranon bursitis Post-op diagnosis: same Procedure performed: Excision left olecranon bursa with wound debridement and closure. Description of procedure: Patient was identified and the proper site identified. He was taken to the operating room and transferred to the OR table placing him supine taking care to pad his torso and extremities. After general anesthetic induction and intubation, a nonsterile tourniquet was placed high on the left arm. Left upper extremity was prepped and draped in the usual sterile fashion. The extremity was gravity exsanguinated and then tourniquet was inflated to 200 mmHg remaining up for about 14 minutes. A longitudinal curvilinear incision was made over the olecranon and triceps insertion. Subcutaneous tissue was sharply dissected down to the bursa which was then dissected out in its entirety. An intraoperative culture was obtained and the bursal tissue was sent for histopathologic examination. The tourniquet was released. Hemostasis was carried out. The wound was gently scrubbed with a sterile sponge and saline then copiously irrigated with saline solution. A 1/8 inch drain was left in the wound taking care not to entrap bit during the closure. Skin edges were reapproximated with three 0 nylon suture. A sterile dressing was applied. Drain was attached to the reservoir. He was awakened, extubated and taken to recovery area in stable condition. There were no known intraoperative complications. Estimated blood loss was approximately 10 cc. He received perioperative antibiotics. Anesthesia: [facility] Surgeon: Matt Lu MD Corporate Receptionist: Ryne Lord Estimated blood loss (mL): 10 Tourniquet time (min): 14 Drains: Yes (1/8 inch Hemovac) Packing: No Pathology: yes (Olecranon bursa and deep culture.) Complications: No immediate complications Condition: stable Disposition: PACU
[2019-05-10 12:50] LABS: Glucose Point of Care 128 (65-105)
--- NOTE | 2019-05-10 13:11 | SUR.PHASEI ---
1305- PT'S SAMANTHA CALLED AND UPDATED.
[2019-05-10] MEDS: FERROUS SULFATE 324 MG TABLET PO (14:47)
[2019-05-10] MEDS: FINASTERIDE 5 MG TABLET PO (14:48)
[2019-05-10] MEDS: OPTI-GEN TAB 1 TABLET PO (14:48)
[2019-05-10] MEDS: ramipriL 5 MG CAPSULE 10 MG PO (14:49)
--- NOTE | 2019-05-10 14:53 | PC.NURSE ---
Returned from OR per bed around 1400.
--- NOTE | 2019-05-10 15:07 | PM.IMPN ---
Progress Note: A&P Assessment and Plan (1) Olecranon bursitis of left elbow: Code(s): M70.22 - Olecranon bursitis, left elbow Status: Deleted Assessment and Plan: In the last month or so, he has been treated with 2 rounds of doxycycline, IV vancomycin for 6 days while in the hospital, and has completed a course of clindamycin. At this juncture, I am not certain it is even appropriate to start antibiotics as he is afebrile with a normal white count. Dr. Lu consulted, and will defer to him. 05/10/19 15:07 Patient 83-year-old male was recently treated for left elbow cellulitis and was positive for MRSA initially in the hospital was treated with vancomycin and was discharged home on clindamycin, patient states he took his 10 day course of clindamycin and soon after finishing his antibiotic he had developed redness pain swelling in the left elbow painful to move, he presented emergency department yesterday, he denies any drainage of fever or chills, he was started on vancomycin, and blood cultures are drawn again, seen by orthopedic surgeon recommending I and D to further evaluate and treat however patient also has a history of coronary artery disease he had been seen by terminal press operator at the [facility] will consult terminal press operator for cardiac clearance and further recommendation,, patient was seen by terminal press operator and cleared the patient for surgery and today was patient taken to OR and had I and D of the left elbow and drain was placed patient tolerated the procedure well currently states is feeling better denies any fever or chills (2) DM type 2 (diabetes mellitus, type 2): Qualifiers: Diabetes mellitus intermediate accountant insulin use: without [facility] use Diabetes mellitus complication status: without complication Qualified Code(s): E11.9 - Type 2 diabetes mellitus without complications Code(s): E11.9 - Type 2 diabetes mellitus without complications Status: Acute Assessment and Plan: May take Tradnatalianta from home. Initiate sliding scale insulin, Accu-Cheks, and hypoglycemic protocol. Hemoglobin A1c was 6.3% in January 2019. 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 He is clinically compensated. Continue furosemide and monitor volume status. (4) Paroxysmal atrial fibrillation: Code(s): I48.0 - Paroxysmal atrial fibrillation Status: Acute Assessment and Plan: Currently sounds to be in the normal sinus rhythm. He is not on any rate-controlling medications that I can see. Hold dabigatran in anticipation of possible procedure tomorrow. (5) Septic olecranon bursitis of left elbow: Code(s): M71.122 - Other infective bursitis, left elbow Status: Acute Assessment and Plan: Patient is being treated with vancomycin patient is seen by orthopedic surgeon and the plan is above Subjective Date/time seen: 05/10/19 15:07 Patient 83-year-old male was recently treated for left elbow cellulitis and was positive for MRSA initially in the hospital was treated with vancomycin and was discharged home on clindamycin, patient states he took his 10 day course of clindamycin and soon after finishing his antibiotic he had developed redness pain swelling in the left elbow painful to move, he presented emergency department yesterday, he denies any drainage of fever or chills, he was started on vancomycin, and blood cultures are drawn again, seen by orthopedic surgeon recommending I and D to further evaluate and treat however patient also has a history of coronary artery disease he had been seen by terminal press operator at the [facility] will consult cardiol
[2019-05-10] MEDS: POTASSIUM CHLORIDE 20 MEQ TABLET.ER 40 MEQ PO (16:54)
[2019-05-10] MEDS: DOCUSATE SODIUM 100 MG CAPSULE PO (16:54)
[2019-05-10] MEDS: ACIDOPHILUS/BULGARICUS CHEWABLE TABLET 1 TABLET PO (16:54)
[2019-05-10] MEDS: FUROSEMIDE 40 MG TABLET PO (16:54)
[2019-05-10 17:28] LABS: Glucose Point of Care 166 (65-105)
[2019-05-10] MEDS: SIMVASTATIN 20 MG TABLET 40 MG PO (20:49)
[2019-05-10] MEDS: OPTI-GEN TAB 2 TABLET PO (20:49)
[2019-05-10] MEDS: PANTOPRAZOLE 40 MG TABLET PO (20:49)
[2019-05-10] MEDS: CITALOPRAM HYDROBROMIDE 10 MG TABLET PO (20:49)
[2019-05-10 23:55] LABS: Glucose Point of Care 210 (65-105)
[2019-05-11 03:31] VITALS: BP 101/58; PULSE 71; RESP 16; TEMP 37.3; O2SAT 97
[2019-05-11 06:00] VITALS: BP 106/58; PULSE 68; RESP 16; TEMP 37.1; O2SAT 98
[2019-05-11 06:18] LABS: Basophils Percent Auto 0.1 % (0.2-1.2); Eosinophils Percent Auto 0.2 % (0-4.4); Hematocrit 40.6 % (42.0-52.0); Hemoglobin 12.5 g/dL (14.0-18.0); Immature Granulocyte Absolute 0.06 K/mm3 (0.00-0.031); Immature Granulocyte Percent A 0.6 % (0-0.5); Lymphocytes Percent Auto 8.3 % (18.3-44.2); Mean Corpuscular HGB Conc 30.8 g/dl (32-36); Mean Corpuscular Hemoglobin 26.3 pg (26-34); Mean Corpuscular Volume 85.5 fl (80-100); Mean Platelet Volume 9.8 fl (7.4-10.4); Monocytes Absolute Auto 0.8 K/mm3 (0.1-0.6); Monocytes Percent Auto 7.1 % (2.6-8.5); Neutrophils Absolute Auto 9.1 K/mm3 (1.3-6.7); Neutrophils Percent Auto 83.7 % (45.5-73.1); Platelet Count Result 277 k/mm3 (150-375); Red Blood Count 4.75 M/mm3 (4.6-6.20); Red Cell Distribution Width 20.2 % (11.5-14.5); White Blood Count 10.8 K/mm3 (4.5-10.0)
[2019-05-11 06:42] LABS: Blood Urea Nitrogen 29 mg/dL (9-20); Calcium 9.2 mg/dL (8.4-10.2); Carbon Dioxide 26 mmol/L (22-30); Chloride 104 mmol/L (98-107); Estimated CRCL calculation 46 ml/min; Estimated Glomerular Filt Rate 58; Glucose 136 mg/dL (75-110); Potassium 5.4 mmol/L (3.4-5.0); Sodium 134 mmol/L (137-145)
--- NOTE | 2019-05-11 08:39 | PM.PNORT ---
Progress Note: A&P Assessment and Plan (1) Septic olecranon bursitis of left elbow: Code(s): M71.122 - Other infective bursitis, left elbow Status: Acute Assessment and Plan: 83-year-old male postop day one left olecranon bursectomy for septic bursitis. Overall doing well. The drain was removed today. I will check the wound tomorrow. Await recommendations from Dr. hannah regarding antibiotic therapy. I did call and discuss all of this with his . Going to stop the narcotic pain medications and rely and Tylenol. Following. Time Spent With Patient Time with patient: 15 - 25 minutes Subjective Subjective Date/Time Seen: 05/11/19 08:39 Post Op day: 1 (Left olecranon bursectomy) Principal diagnosis: Septic left olecranon bursitis Interval history: 83-year-old male postop day one from left olecranon bursectomy for septic bursitis. Had a reasonable night. Overall doing well. No complaints. Review of Systems Constitutional: Constitutional: Denies chills and Denies fever(s) Eyes: Eyes: Reports no additional eye complaints ENT: Reports system reviewed and no additional complaints, except as documented Cardiovascular: Cardiovascular: Denies chest pain and Denies dyspnea on exertion Respiratory: Respiratory: Reports no additional respiratory complaints and Denies dyspnea on exertion Gastrointestinal: Gastrointestinal: Denies abdominal pain and Denies bloating Exam Const: General: cooperative, no acute distress and alert Nutritional Appearance: other Orientation/consciousness: patient oriented x3 Limitations: no limitations HENMT: Head: normal to inspection Ears: hearing grossly normal bilaterally Face and sinus: face symmetric Mouth: Yes moist mucous membranes Teeth and gingiva: fair dentition Eyes: Alignment and Position: alignment normal and position normal Sclera: sclerae normal Neck: Neck: normal visual inspection and nontender Chest: Chest palpation & inspection: normal inspection of the chest Resp: Effort & Inspection: normal respiratory effort and able to speak in complete sentences GI: Inspection: other Skin: General skin exam: normal color Rashes: no rashes Neuro: General: patient oriented x3 Cognition (Neuro): normal cognition Speech: normal speech Motor exam (neuro): 5/5 motor strength present throughout (Left upper extremity) Sensory Exam: normal sensation Extrem: General: normal to inspection and other Other: Exam of the dressing to the left upper extremity shows no drainage. Very little drainage in the drain and it is serous at this point. Drain removed without incident. Neurovascular status left upper extremity is intact. Psych: Appearance: grossly normal Mental Status: mental status grossly normal Elbow X-Ray 05/08/19 Objective Data Vital Signs Vital Signs: Vital Signs - 24 hr 05/10/19 09:00 05/10/19 09:29 05/10/19 10:01 Temperature 98.1 F 97.8 F 98.1 F Pulse Rate 70 71 70 Respiratory Rate 16 14 16 Blood Pressure 122/59 L 124/79 122/59 L Pulse Oximetry 97 97 97 05/10/19 12:32 05/10/19 12:45 05/10/19 13:00 Temperature 97.8 F Pulse Rate 70 70 73 Respiratory Rate 23 H 20 20 Blood Pressure 115/77 126/78 123/78 Pulse Oximetry 97 97 93 05/10/19 13:15 05/10/19 13:30 05/10/19 13:45 Temperature Pulse Rate 71 71 71 Respiratory Rate 20 20 20 Blood Pressure 125/79 121/82 123/75 Pulse Oximetry 94 94 98 05/10/19 14:00 05/10/19 14:15 05/10/19 14:45 Temperature 97.8 F 97.5 F L 98.1 F Pulse Rate 71 70 70 Respiratory Rate 16 16 16 Blood Pressure 124/67 118/69 118/70 Pulse Oximetry 100 99 98 05/10/19 15:45 05/10/19 19:31 05/10/19 22:00 Temperature 98.4 F 97.9 F Pulse Rate 71 73 71 Respiratory Rate 16 16 Blood Pressure 116/77 94/51 L Pulse Oximetry 97 94 93 05/11/19 03:31 05/11/19 06:00 Temperature 99.1 F 98.7 F Pulse Rate 71 68 Respiratory Rate 16 16 Blood Pressure 101/58 L 106/58 L Pulse Oximetry 97 98 Intak
[2019-05-11] MEDS: FERROUS SULFATE 324 MG TABLET PO (08:53)
[2019-05-11] MEDS: ACIDOPHILUS/BULGARICUS CHEWABLE TABLET 1 TABLET PO ×2 (08:54→16:44)
[2019-05-11] MEDS: DOCUSATE SODIUM 100 MG CAPSULE PO ×2 (08:54→16:45)
[2019-05-11] MEDS: OPTI-GEN TAB 1 TABLET PO (08:55)
[2019-05-11] MEDS: FUROSEMIDE 40 MG TABLET PO ×2 (08:55→16:45)
[2019-05-11] MEDS: FINASTERIDE 5 MG TABLET PO (08:55)
[2019-05-11] MEDS: PANTOPRAZOLE 40 MG TABLET PO ×2 (08:56→20:56)
[2019-05-11] MEDS: ramipriL 5 MG CAPSULE 10 MG PO (08:56)
[2019-05-11 09:42] LABS: Glucose Point of Care 118 (65-105)
--- NOTE | 2019-05-11 10:48 | PM.PNCARD ---
Progress Note: A&P Assessment and Plan (1) Preoperative cardiovascular examination: Code(s): Z01.810 - Encounter for preprocedural cardiovascular examination Status: Acute Assessment and Plan: Postop day 1 (2) Paroxysmal atrial fibrillation: Code(s): I48.0 - Paroxysmal atrial fibrillation Status: Acute Assessment and Plan: Stable, anticoagulation restarted by Dr. Lu (3) CAD (coronary artery disease): Qualifiers: Coronary Disease-Associated Artery/Lesion type: in[place]iat artery [place] vs. transplanted heart: inupiat heart Associated angina: without angina Qualified Code(s): I25.10 - Atherosclerotic heart disease of inupiat coronary artery without angina pectoris Code(s): I25.10 - Atherosclerotic heart disease of inupiat coronary artery without angina pectoris Status: Acute Assessment and Plan: asymptomatic. Continue current medical therapy. Continue statin. (4) CHF (congestive heart failure): Qualifiers: Heart failure type: unspecified Heart failure chronicity: acute Qualified Code(s): I50.9 - Heart failure, unspecified Code(s): I50.9 - Heart failure, unspecified Status: Acute Assessment and Plan: Compensated. [place] Heart Association class I-II symptoms. Continue home cardiovascular medical therapy. (5) Mitral regurgitation: Qualifiers: Cardiac valve disease etiology: nonrheumatic Qualified Code(s): I34.0 - Nonrheumatic mitral (valve) insufficiency Code(s): I34.0 - Nonrheumatic mitral (valve) insufficiency Status: Acute Assessment and Plan: Moderate to severe. Asymptomatic at this time. (6) Pulmonary hypertension: Code(s): I27.20 - Pulmonary hypertension, unspecified Status: Acute Assessment and Plan: Severe on most recent echocardiogram. Well compensated and currently asymptomatic. Additional Plan Stable from a cardiac standpoint postoperatively He will follow up with Dr. Gardner as scheduled by her office. See discharge instructions for follow-up Plan discussed with Dr. Garcia 1020 05/11/2019 Time Spent With Patient Time with patient: less than 15 minutes Subjective Date/time seen: 05/11/19 10:48 Interval history: Follow-up for: Paroxysmal atrial fibrillation, long-term use anticoagulation, coronary artery disease, mitral regurgitation, pulmonary hypertension Date of service: 05/11/2019 Subjective: Denied chest discomfort, shortness of breath, lightheadedness or palpitations. Has been ambulating around the unit. Review of Systems Constitutional: Constitutional: Denies body ache(s), Denies chills, Denies excessive sweating, Denies fatigue, Denies headache(s) and Denies weakness Eyes: Eyes: Denies blurry vision ENT: Denies dysphagia, Denies headache(s), Denies nasal congestion and Denies nasal discharge Cardiovascular: Cardiovascular: Denies chest pain, Denies diaphoresis, Denies leg edema, Denies lightheadedness, Denies palpitations, Denies dyspnea and Denies dyspnea on exertion Respiratory: Respiratory: Denies cough, Denies hemoptysis, Denies dyspnea and Denies dyspnea on exertion Gastrointestinal: Gastrointestinal: Denies abdominal pain, Denies melena, Denies hematochezia, Denies dysphagia, Denies nausea, Denies vomiting and Denies hematemesis Genitourinary: Genitourinary: Denies hematuria and Denies dysuria Musculoskeletal: Musculoskeletal: Denies abnormal gait, Reports arthralgias ( Left elbow) and Reports joint swelling ( left elbow) Integumentary/Breasts: Skin/Breast: Reports erythema ( left elbow) Neurologic: Denies abnormal gait, Denies confusion, Denies headache(s) and Denies weakness Psychiatric: Psychiatric: Denies anxiety and Denies confusion Endocrine:
--- NOTE | 2019-05-11 12:07 | PM.IMPN ---
Progress Note: A&P Assessment and Plan (1) Olecranon bursitis of left elbow: Code(s): M70.22 - Olecranon bursitis, left elbow Status: Deleted Assessment and Plan: In the last month or so, he has been treated with 2 rounds of doxycycline, IV vancomycin for 6 days while in the hospital, and has completed a course of clindamycin. At this juncture, I am not certain it is even appropriate to start antibiotics as he is afebrile with a normal white count. Dr. Lu consulted, and will defer to him. 05/10/19 15:07 Patient 83-year-old male was recently treated for left elbow cellulitis and was positive for MRSA initially in the hospital was treated with vancomycin and was discharged home on clindamycin, patient states he took his 10 day course of clindamycin and soon after finishing his antibiotic he had developed redness pain swelling in the left elbow painful to move, he presented emergency department yesterday, he denies any drainage of fever or chills, he was started on vancomycin, and blood cultures are drawn again, seen by orthopedic surgeon recommending I and D to further evaluate and treat however patient also has a history of coronary artery disease he had been seen by director health at the [facility] will consult director health for cardiac clearance and further recommendation,, patient was seen by director health and cleared the patient for surgery and today was patient taken to OR and had I and D of the left elbow and drain was placed patient tolerated the procedure well currently states is feeling better denies any fever or chills (2) DM type 2 (diabetes mellitus, type 2): Qualifiers: Diabetes 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 Initiate sliding scale insulin, Accu-Cheks, and hypoglycemic protocol. Hemoglobin A1c was 6.3% in January 2019. 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 He is clinically compensated. Continue furosemide and monitor volume status. (4) Paroxysmal atrial fibrillation: Code(s): I48.0 - Paroxysmal atrial fibrillation Status: Acute Assessment and Plan: Currently sounds to be in the normal sinus rhythm. He is not on any rate-controlling medications that I can see. Hold dabigatran in anticipation of possible procedure tomorrow. (5) Septic olecranon bursitis of left elbow: Code(s): M71.122 - Other infective bursitis, left elbow Status: Acute Assessment and Plan: Patient is being treated with vancomycin patient is seen by orthopedic surgeon and the plan is above Subjective Date/time seen: 05/11/19 12:07 Exam Narrative: Exam Narrative: General: Well-developed, well-nourished elderly male sitting up in bed no acute distress. HEENT: Normocephalic, atraumatic. PERRL, EOMI. Sclerae anicteric. Oral mucosa moist. Neck: Supple. Respiratory: Lungs are clear to auscultation bilaterally. Cardiovascular: Regular rate and rhythm with S1-S2. 2/6 systolic murmur at the apex. Gastrointestinal: Abdomen is soft, nontender, and nondistended with positive bowel sounds. Skin: Warm and dry. Left elbow is erythematous and edematous. Minimal tenderness to palpation. No significant warmth. Complains of no pain with full range of motion. Extremities: No cyanosis, clubbing, or edema. Radial and pedal pulses intact. Neuro
[2019-05-11 12:15] LABS: Vancomycin Trough 10.8 ug/mL (10.0-20.0)
[2019-05-11 12:37] LABS: Glucose Point of Care 99 (65-105)
[2019-05-11 14:08] VITALS: BP 102/55; PULSE 70; RESP 18; TEMP 37.1; O2SAT 95
--- NOTE | 2019-05-11 15:32 | WPDINFPN2 ---
Progress Note: A&P Assessment and Plan (1) Septic olecranon bursitis of left elbow: Code(s): M71.122 - Other infective bursitis, left elbow Status: Acute Assessment and Plan: MRSA septic bursitis POD # 1 REC Vanc # 4, present dosing through 05/22 (14 days post op), PICC and discharge planning Subjective Date/time seen: 05/11/19 15:32 Objective Data Vital Signs Vital Signs: Vital Signs - 24 hr 05/10/19 15:45 05/10/19 19:31 05/10/19 22:00 Temperature 36.9 C 36.6 C Pulse Rate 71 73 71 Respiratory Rate 16 16 Blood Pressure 116/77 94/51 L Pulse Oximetry 97 94 93 05/11/19 03:31 05/11/19 06:00 05/11/19 14:08 Temperature 37.3 C 37.1 C 37.1 C Pulse Rate 71 68 70 Respiratory Rate 16 16 18 Blood Pressure 101/58 L 106/58 L 102/55 L Pulse Oximetry 97 98 95 Intake/Output Intake/Output: Intake & Output 05/08/19 05/09/19 05/10/19 05/11/19 23:59 23:59 23:59 23:59 Intake Total 830 2420 1230 1390 Output Total 2250 1150 350 Balance 830 623 36 9411 Meds/Results Medications: Active Medications Generic Name Dose Route Start Last Admin Trade Name Freq PRN Reason Stop Dose Admin Acetaminophen 650 mg 05/11/19 08:46 Tylenol Tablet PO Q6H PRN Pain Citalopram Hydrobromide 10 mg 05/08/19 21:00 05/10/19 20:49 Celexa PO 10 mg HS CHRIS Administration Dabigatran 150 mg 05/12/19 05:00 Pradaxa PO BID CHRIS Dextrose 12.5 gm 05/08/19 17:17 Dextrose 50% Syringe IV PUSH PRN PRN Hypoglycemia Protocol Docusate Sodium 100 mg 05/10/19 17:00 05/11/19 08:54 Colace Capsule PO 100 mg BID CHRIS Administration Ferrous Sulfate 324 mg 05/08/19 08:00 05/11/19 08:53 Ferrous Sulfate PO 324 mg DAILY@0800 CHRIS Administration Finasteride 5 mg 05/09/19 09:00 05/11/19 08:55 Proscar PO 5 mg DAILY CHRIS Administration Furosemide 40 mg 05/08/19 17:00 05/11/19 08:55 Lasix Tablet PO 40 mg BID CHRIS Administration Glucagon 1 mg 05/08/19 17:17 Glucagon For Inj IM PRN PRN Hypoglycemia Protocol Glucose 15 gm 05/08/19 17:17 Glutose 15 PO PRN PRN Hypoglycemia Protocol Vancomycin HCl 1,250 mg in 250 mls @ 200 mls/hr 05/09/19 12:00 05/11/19 14:21 Vancomycin 1,250 Mg/D5w 250 Ml IVPB Infused Q24H CHRIS Infusion Sodium Chloride 1,000 mls @ 125 mls/hr 05/10/19 13:46 Normal Saline Iv IV CONT .Q8H CHRIS Insulin Aspart 2 - 5 units 05/08/19 17:00 05/11/19 13:06 Novolog SUB-Q Not Given TIDWM [facility] Protocol Lactobacillus Acidophilus 1 tablet 05/08/19 17:00 05/11/19 08:54 Lactinex Chewable Tablet PO 1 tablet BID CHRIS Administration Lidocaine HCl 5 ml 05/11/19 15:30 Xylocaine 1% Local Inj INFILTRATE 05/11/19 15:31 ONCE ONE Magnesium Hydroxide 30 ml 05/10/19 13:46 Milk Of Magnesia PO BID PRN Constipation Multivitamins/Minerals 1 tablet 05/09/19 09:00 05/11/19 08:55 Ocuvite PO 1 tablet DAILY CHRIS Administration Multivitamins/Minerals 2 tablet 05/08/19 21:00 05/10/19 20:49 Ocuvite PO 06/07/19 21:01 2 tablet HS CHRIS Administration Non-Formulary Medication 5 mg 05/09/19 09:00 Linagliptin [Tradjenta] PO 06/08/19 09:01 QAM CHRIS Pantoprazole Sodium 40 mg 05/08/19 21:00 05/11/19 08:56 Protonix PO 40 mg Q12HR CHRIS Administration Potassium Chloride 40 meq 05/08/19 17:00 05/11/19 12:59 Kcl Tablet PO Not Given BID CHRIS Ramipril 10 mg 05/09/19 09:00 05/11/19 08:56 Altace PO 10 mg DAILY CHRIS Administration Simvastatin 40 mg 05/08/19 21:00 05/10/19 20:49 Zocor PO 40 mg HS CHRIS Administration Radiology Results: ITS Impressions Elbow X-Ray 05/08/19 11:39 IMPRESSION: 1. Focal dense soft tissue swelling overlying the olecranon suggestive of recurrent olecranon bursitis. 2. No left elbow joint effusion or osseous abnormality. Labs Labs: Laboratory Re
--- NOTE | 2019-05-11 16:09 | PM.IMPN ---
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 Initiate sliding scale insulin, Accu-Cheks, and hypoglycemic protocol. Hemoglobin A1c was 6.3% in January 2019. 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 He is clinically compensated. (4) Paroxysmal atrial fibrillation: Code(s): I48.0 - Paroxysmal atrial fibrillation Status: Acute Assessment and Plan: Currently sounds to be in the normal sinus rhythm. (5) Septic olecranon bursitis of left elbow: Code(s): M71.122 - Other infective bursitis, left elbow Status: Acute Assessment and Plan: Patient is being treated with vancomycin patient sp incision and drainage by orthopedic surgeorn Subjective Date/time seen: 05/11/19 16:09 Interval history: Juan is an 83-year-old male with multiple medical problems including coronary artery disease, congestive heart failure, type 2 diabetes mellitus, hypertension, paroxysmal atrial fibrillation, polymyalgia rheumatica, and several other comorbidities who presented to the emergency department earlier this morning for evaluation of left elbow swelling and redness. awaiting picc line and discharge soon. No specific compliants. Review of Systems Review of Systems: All systems reviewed & are unremarkable except as noted in HPI and below Exam Narrative: Exam Narrative: General: Well-developed HEENT: Normocephalic Neck: Supple. Respiratory: Lungs are clear to auscultation bilaterally. Cardiovascular: Regular rate and rhythm with S1-S2. 2/6 systolic murmur at the apex. Gastrointestinal: Abdomen is soft, nontender, and nondistended with positive bowel sounds. Skin: Warm and dry. Left elbow sp incision and drainage Extremities: No cyanosis, clubbing, or edema. Radial and pedal pulses intact. Neurological: Alert. Cranial nerves 2-12 are grossly intact. No gross focal deficits to casual conversation. Psychiatric: Pleasant and cooperative with normal mood and affect. Objective Data Vital Signs Vital Signs: Vital Signs - 24 hr 05/10/19 19:31 05/10/19 22:00 05/11/19 03:31 Temperature 36.6 C 37.3 C Pulse Rate 73 71 71 Respiratory Rate 16 16 Blood Pressure 94/51 L 101/58 L Pulse Oximetry 94 93 97 05/11/19 06:00 05/11/19 14:08 Temperature 37.1 C 37.1 C Pulse Rate 68 70 Respiratory Rate 16 18 Blood Pressure 106/58 L 102/55 L Pulse Oximetry 98 95 Intake/Output Intake/Output: Intake & Output 05/08/19 05/09/19 05/10/19 05/11/19 23:59 23:59 23:59 23:59 Intake Total 830 2420 1230 1390 Output Total 2250 1150 350 Balance 830 768 90 2781 Meds/Results Medications: Active Medications Generic Name Dose Route Start Last Admin Trade Name Freq PRN Reason Stop Dose Admin Acetaminophen 650 mg 05/11/19 08:46 Tylenol Tablet PO Q6H PRN Pain Citalopram Hydrobromide 10 mg 05/08/19 21:00 05/10/19 20:49 Celexa PO 10 mg HS CHRIS Administration Dabigatran 150 mg 05/12/19 05:00 Pradaxa PO BID CHRIS Dex
--- NOTE | 2019-05-11 17:03 | CONS_ITS ---
DATE OF CONSULTATION: 05/11/2019 REASON FOR CONSULTATION: Septic bursitis, left elbow. HISTORY OF PRESENT ILLNESS: The patient is an 83-year-old male who has had no previous trauma, operations, neurovascular compromise on left arm, is on no immunosuppressants. He did have an asthma exacerbation last month, treated with albuterol updrafts, not with systemic steroids. No antibiotics. He was here in the hospital this month with swelling, redness, as well as an ulceration over the left olecranon. He is given vancomycin while here, discharged on clindamycin. A superficial swab grew MRSA. He completed the clindamycin as directed over in several days before the present admission, he had recurrent redness and swelling of the elbow as well as proximal and distal. He saw Dr. Garnica in the office and was admitted on the . He was taken to the operating room yesterday where he underwent excision of an infected olecranon bursa. Cultures were collected and consultation now requested. He is now back on vancomycin day #4. Consultation requested. He has been on no other recent antibiotics. He has been no trauma. He knows of no skin lesions elsewhere. No pain in the elbow itself. His sensation of edema is less postop. ALLERGIES: NO KNOWN DRUG ALLERGIES. HABITS: No alcohol, no tobacco, having quit some 50 years ago. PRESENT MEDICATIONS: List reviewed. 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 Lives locally. FAMILY HISTORY: Heart disease, cancer, and hypertension. PAST MEDICAL HISTORY: Coronary stents and CABG, tonsillectomy, pacemaker, hernia repair, appendectomy, pulmonary artery hypertension, PMR, PAF, BOOGIE, spinal stenosis, hyperlipidemia, GI hemorrhage, type 2 diabetes mellitus, heart failure, and BPH. REVIEW OF SYSTEMS: A 14-point review otherwise negative. PHYSICAL EXAMINATION: GENERAL: This is an elderly male who appears his actual age. No distress. VITAL SIGNS: Afebrile since arrival 102/55, 70, 18, 95%. SKIN: Warm and dry. No generalized rashes. NODES: He has no cervical adenopathy. EENT: Pupils equal and round. The conjunctivae are normal. The oropharynx and oral mucosa normal. NECK: Supple. No masses. No meningismus. LUNGS: Clear to auscultation and percussion. CARDIAC: Regular rate and rhythm. No murmur, gallop, or rub. No heaves. ABDOMEN: Soft, nontender. No organomegaly. No masses. EXTREMITIES: Without clubbing, cyanosis, or edema. MUSCULOSKELETAL: His left elbow has an operative dressing in place, I did not remove. He has no distal edema or erythema. There are no skin color changes distally. DIAGNOSTIC STUDIES: Prior wound culture as above. New wound culture from the operating room yesterday is in process. His MRSA screen of the nose on admission negative. Blood cultures from , final no growth and again from the , no growth so far. From the operating room, Gram stain, moderate white cells, no organisms seen. His white count 8.3 on readmission 10.8 today. Hemoglobin is 12.5, which is higher. Platelets are 277, his differential is normal. Chemistry panel has been normal other than elevated BUN. Mild hyponatremia. Glucose 136, BUN 29, creatinine 1.2. CRP 1.2. Vancomycin trough therapeutic 11. RADIOLOGY: Elbow x-ray shows soft tissue swelling as does the ultrasound. Pathology from the operating room reveals bursitis with thickening. ASSESSMENT: 1. Partially treated methicillin-resistant Staphylococcus aureus septic bursitis, left elbow, persistent despite IV and oral therapy as described. He is now postop day #1, debridement and excision of the bursa and stable. Other potential etiologies less likely including JESSICA, various streptococci, coagulase-negative Staph or diphtheroid or propionibacterium
[2019-05-11 17:50] LABS: Glucose Point of Care 114 (65-105)
[2019-05-11] MEDS: OPTI-GEN TAB 2 TABLET PO (20:56)
[2019-05-11] MEDS: SIMVASTATIN 20 MG TABLET 40 MG PO (20:57)
[2019-05-11] MEDS: CITALOPRAM HYDROBROMIDE 10 MG TABLET PO (20:59)
[2019-05-11 22:00] VITALS: BP 108/48; PULSE 71; RESP 18; TEMP 37; O2SAT 97
[2019-05-11 23:20] VITALS: PULSE 71; O2SAT 93
[2019-05-12 01:15] VITALS: PULSE 71; O2SAT 93
[2019-05-12 02:14] LABS: Glucose Point of Care 142 (65-105)
[2019-05-12 06:00] VITALS: BP 123/63; PULSE 88; RESP 16; TEMP 36.4; O2SAT 94
[2019-05-12 06:35] LABS: Blood Urea Nitrogen 32 mg/dL (9-20); Calcium 8.7 mg/dL (8.4-10.2); Carbon Dioxide 27 mmol/L (22-30); Chloride 100 mmol/L (98-107); Estimated CRCL calculation 39 ml/min; Estimated Glomerular Filt Rate 48; Glucose 102 mg/dL (75-110); Potassium 4.4 mmol/L (3.4-5.0); Sodium 133 mmol/L (137-145)
[2019-05-12] MEDS: DABIGATRAN ETEXILATE 150 MG CAPSULE PO ×2 (06:52→08:36)
[2019-05-12 06:53] LABS: Hematocrit 39.9 % (42.0-52.0); Mean Corpuscular HGB Conc 30.1 g/dl (32-36); Mean Corpuscular Hemoglobin 26.3 pg (26-34); Mean Corpuscular Volume 87.3 fl (80-100); Mean Platelet Volume 10.6 fl (7.4-10.4); Platelet Count Result 239 k/mm3 (150-375); Red Blood Count 4.57 M/mm3 (4.6-6.20); Red Cell Distribution Width 20.8 % (11.5-14.5)
[2019-05-12] MEDS: FERROUS SULFATE 324 MG TABLET PO (08:34)
[2019-05-12] MEDS: FUROSEMIDE 40 MG TABLET PO (08:34)
[2019-05-12] MEDS: POTASSIUM CHLORIDE 20 MEQ TABLET.ER 40 MEQ PO (08:34)
[2019-05-12] MEDS: FINASTERIDE 5 MG TABLET PO (08:34)
[2019-05-12] MEDS: PANTOPRAZOLE 40 MG TABLET PO (08:35)
[2019-05-12] MEDS: DOCUSATE SODIUM 100 MG CAPSULE PO (08:35)
[2019-05-12] MEDS: OPTI-GEN TAB 1 TABLET PO (08:35)
[2019-05-12] MEDS: ACIDOPHILUS/BULGARICUS CHEWABLE TABLET 1 TABLET PO (08:35)
[2019-05-12] MEDS: ramipriL 5 MG CAPSULE 10 MG PO (08:36)
[2019-05-12 09:29] LABS: Glucose Point of Care 118 (65-105)
--- NOTE | 2019-05-12 09:49 | PM.PNORT ---
Progress Note: A&P Assessment and Plan (1) Septic olecranon bursitis of left elbow: Code(s): M71.122 - Other infective bursitis, left elbow Status: Acute Assessment and Plan: 83-year-old male olecranon bursa for septic bursitis. He is doing very well. It looks like his antibiotic therapy has been determined. He has has an appointment to see me on May 21 for suture removal. From my standpoint, he just needs to not lean on his elbow and should do daily dressing changes. These were included in my discharge orders. Subjective Subjective Date/Time Seen: 05/12/19 09:49 Post Op day: 2 (Left elbow surgery) Principal diagnosis: Septic left olecranon bursitis Review of Systems Constitutional: Constitutional: Denies chills and Denies fever(s) Eyes: Eyes: Reports no additional eye complaints ENT: Reports system reviewed and no additional complaints, except as documented Cardiovascular: Cardiovascular: Denies chest pain and Denies dyspnea on exertion Respiratory: Respiratory: Reports no additional respiratory complaints and Denies dyspnea on exertion Gastrointestinal: Gastrointestinal: Denies abdominal pain and Denies bloating Exam Const: General: cooperative, no acute distress and alert Nutritional Appearance: other Orientation/consciousness: patient oriented x3 Limitations: no limitations HENMT: Head: normal to inspection Ears: hearing grossly normal bilaterally Face and sinus: face symmetric Mouth: Yes moist mucous membranes Teeth and gingiva: fair dentition Eyes: Alignment and Position: alignment normal and position normal Sclera: sclerae normal Neck: Neck: normal visual inspection and nontender Chest: Chest palpation & inspection: normal inspection of the chest Resp: Effort & Inspection: normal respiratory effort and able to speak in complete sentences GI: Inspection: other (Nontender; nondistended) Skin: General skin exam: normal color Rashes: no rashes Neuro: General: patient oriented x3 Cognition (Neuro): normal cognition Speech: normal speech Gait exam (Neuro): Other gait observations present Motor exam (neuro): 5/5 motor strength present throughout (Left upper extremity) Sensory Exam: normal sensation Extrem: General: normal to inspection and other Other: Exam of the left elbow wound demonstrates no drainage. No erythema. Wound edges well approximated. Neurovascular status grossly intact left upper extremity. Psych: Appearance: grossly normal Mental Status: mental status grossly normal Objective Data Vital Signs Vital Signs: Vital Signs - 24 hr 05/11/19 14:08 05/11/19 22:00 05/11/19 23:20 Temperature 98.7 F 98.6 F Pulse Rate 70 71 71 Respiratory Rate 18 18 Blood Pressure 102/55 L 108/48 L Pulse Oximetry 95 97 93 05/12/19 01:15 05/12/19 06:00 Temperature 97.6 F Pulse Rate 71 88 Respiratory Rate 16 Blood Pressure 123/63 Pulse Oximetry 93 94 Intake/Output Intake/Output: Intake & Output 05/09/19 05/10/19 05/11/19 05/12/19 23:59 23:59 23:59 23:59 Intake Total 2420 / 2420 1230 / 1230 2620 / 2620 600 / 600 Output Total 2250 / 2250 1150 / 1150 550 / 550 900 / 900 Balance 170 / 170 80 / 80 2070 / 2070 -300 / -300 Meds/Results Medications: Active Medications Generic Name Dose Route Start Last Admin Trade Name Freq PRN Reason Stop Dose Admin Acetaminophen 650 mg 05/11/19 08:46 Tylenol Tablet PO Q6H PRN Pain Citalopram Hydrobromide 10 mg 05/08/19 21:00 05/11/19 20:59 Celexa PO 10 mg HS CHRIS Administration Dabigatran 150 mg 05/12/19 05:00 05/12/19 08:36 Pradaxa PO 150 mg BID CHRIS Administration Dextrose 12.5 gm 05/08/19 17:17 Dextrose 50% Syringe IV PUSH PRN PRN Hypoglycemia Protocol Docusate Sodium 100 mg 05/10/19 17:00 05/12/19 08:35 Colace Capsule PO 100 mg BID CHRIS Administration Ferrous Sulfate 324 mg 05/08/19 08:00 05/12/19 08:34 Ferrous Sulfate PO 324 m
--- NOTE | 2019-05-12 12:28 | PM.DS ---
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 Initiate sliding scale insulin, Accu-Cheks, and hypoglycemic protocol. Hemoglobin A1c was 6.3% in January 2019. 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 He is clinically compensated. (4) Paroxysmal atrial fibrillation: Code(s): I48.0 - Paroxysmal atrial fibrillation Status: Acute Assessment and Plan: Currently sounds to be in the normal sinus rhythm. (5) Septic olecranon bursitis of left elbow: Code(s): M71.122 - Other infective bursitis, left elbow Status: Acute Assessment and Plan: Patient is being treated with vancomycin patient sp incision and drainage by orthopedic surgeorn DS: Summary Time Spent with Patient Time attestation: Total time spent providing and/or coordinating discharge services:38 minutes on day of discharge Exam Narrative: Exam Narrative: General: Well-developed HEENT: Normocephalic Neck: Supple. Respiratory: Lungs are clear to auscultation bilaterally. Cardiovascular: Regular rate and rhythm with S1-S2. 2/6 systolic murmur at the apex. Gastrointestinal: Abdomen is soft, nontender, and nondistended with positive bowel sounds. Skin: Warm and dry. Left elbow sp incision and drainage Extremities: No cyanosis, clubbing, or edema. Radial and pedal pulses intact. Neurological: Alert. Cranial nerves 2-12 are grossly intact. No gross focal deficits to casual conversation. Psychiatric: Pleasant and cooperative with normal mood and affect. DS: Data Data Completed and Pending Completed studies during hospitalization: Pending at discharge 05/10/19 12:34 Surgical [PTH] Routine Labs on day of discharge: Labs from last 24 hours 05/12/19 05/12/19 05/12/19 08:34 05:52 05:51 WBC 9.0 RBC 4.57 L Hgb 12.0 L Hct 39.9 L MCV 87.3 MCH 26.3 MCHC 30.1 L RDW 20.8 H Plt Count 239 MPV 10.6 H Sodium 133 L Potassium 4.4 Chloride 100 Carbon Dioxide 27 BUN 32 H Creatinine 1.40 H Estim Creat Clear Calc 39 Estimated GFR 48 L Glucose 102 POC Capillary Glucose 118 H Calcium 8.7 05/11/19 05/11/19 05/11/19 21:03 17:28 12:35 WBC RBC Hgb Hct MCV MCH MCHC RDW Plt Count MPV Sodium Potassium Chloride Carbon Dioxide BUN Creatinine Estim Creat Clear Calc Estimated GFR Glucose POC Capillary Glucose 142 H 114 H 99 Calcium Preliminary micro results at discharge 05/10/19 12:00 Anaerobic Culture - Preliminary Elbow Left Aerobic Culture - Preliminary 05/08/19 11:25 Blood Culture - Preliminary Blood 05/08/19 11:25 Blood Culture - Preliminary Blood Discharge Plan Discharge Attending physician on discharge: Anel Ibrahim Consulting providers: Matt Lu ; Magdiel Garcia ; Tonio Coyne Discharging Clinician: Patrice
[2019-05-12 13:04] LABS: Glucose Point of Care 108 (65-105)
[2019-05-12 14:00] VITALS: BP 109/63; PULSE 67; RESP 18; TEMP 36.6; O2SAT 95
[2019-05-12] MEDS: CENTRAL LINE FLUSH 10 ML IV PUSH (14:20)
== END 2019-05-12 16:05 | disposition home health service (06) | DRG 500 ==
LOC: ANHED 12:17 → ANH3MEDSUR 12:18
PROVIDERS: Orthopaedic Surgery; Physician Assistant; Admitting Provider Family Medicine; Emergency Provider Emergency Medicine; PCP Internal Medicine; Visit Provider Family Medicine
PROC: 0MB40ZZ Excision of Left Elbow Bursa and Ligament, Open Approach (ICD-10-PCS; principal; 2019-05-10 10:30)
DX: M71.122 Other infective bursitis, left elbow (principal); I50.43 Acute on chronic combined systolic (congestive) and diastolic (congestive) heart failure; I13.0 Hypertensive heart and chronic kidney disease with heart failure and stage 1 through stage 4 chronic kidney disease, or unspecified chronic kidney disease; E11.22 Type 2 diabetes mellitus with diabetic chronic kidney disease; N18.9 Chronic kidney disease, unspecified; I48.0 Paroxysmal atrial fibrillation; G47.33 Obstructive sleep apnea (adult) (pediatric); M79.7 Fibromyalgia; I25.10 Atherosclerotic heart disease of native coronary artery without angina pectoris; I27.20 Pulmonary hypertension, unspecified; N40.0 Benign prostatic hyperplasia without lower urinary tract symptoms; E78.5 Hyperlipidemia, unspecified; M19.90 Unspecified osteoarthritis, unspecified site; I34.0 Nonrheumatic mitral (valve) insufficiency; M48.061 Spinal stenosis, lumbar region without neurogenic claudication; Z95.5 Presence of coronary angioplasty implant and graft; Z98.42 Cataract extraction status, left eye; Z98.41 Cataract extraction status, right eye; Z95.1 Presence of aortocoronary bypass graft; Z87.891 Personal history of nicotine dependence; Z95.0 Presence of cardiac pacemaker; Z79.82 Long term (current) use of aspirin; Z79.01 Long term (current) use of anticoagulants
CPT/HCPCS: 36415; 36569; 73080; 80048; 80053; 80202; 82565; 83605; 85025; 85027; 85610; 85730; 86140; 87040; 87070; 87075; 87081; 87205; 88304; 93005; 96365; 99285; A9270; C1751; G0378; J0330; J1100; J2405; J2704; J3010; J3370; J7120

== ENCOUNTER 2019-05-24 12:15 | Outpatient (CLI) | payer MEDICARE, SELFPAY ==
[2019-05-24 12:50] LABS: Blood Urea Nitrogen 51 mg/dL (9-20); Carbon Dioxide 24 mmol/L (22-30); Chloride 103 mmol/L (98-107); Estimated Glomerular Filt Rate 45; Glucose 113 mg/dL (75-110); Potassium 4.8 mmol/L (3.4-5.0); Sodium 135 mmol/L (137-145)
== END 2019-05-24 12:16 | disposition home or self-care (01) ==
PROVIDERS: PCP Internal Medicine; Visit Provider Internal Medicine
DX: Z79.899 Other long term (current) drug therapy (principal)
CPT/HCPCS: 36415; 80048

== ENCOUNTER 2019-07-06 13:32 | Outpatient (CLI) | payer MEDICARE, SELFPAY ==
--- NOTE | ~2019-07-06 | CT_ITS ---
EXAMINATION: CT elbow LT wo con DATE: 07/06/2019 14:40 INDICATION: Bursitis caused by bacterial infection. TECHNIQUE: High resolution computed tomography (CT) of the left elbow was performed without intraveno us contrast. Additional sagittal and coronal reconstructions were performed. Automated exposure contr ol and iterative reconstruction technique were employed. The dose-length product was 329.29 mGy-cm. COMPARISON: Left elbow radiographs dated 05/08/2019 FINDINGS: Bone alignment is normal. No fracture. Mild osteoarthritis at the left elbow. No elbow joint effusion . Tiny enthesopathic calcifications at the olecranon insertion of the distal triceps tendon. There is prominent overlying soft tissue swelling with subcutaneous edema surrounding a bursal fluid collecti on which measures 4.0 cm proximal to distal, 1.8 cm medial to lateral and up to 3 mm in thickness. No cortical erosions or periosteal reaction to suggest osteomyelitis or other inflammatory arthritis. IMPRESSION: 1. Olecranon bursitis which could be septic as suggested by the provided history or aseptic such as i n the setting of gout. 2. Mild osteoarthritis at the left elbow without associated elbow joint effusion. Reviewed, dictated and finalized at location A. IMPRESSION: 1. Olecranon bursitis which could be septic as suggested by the provided histor y or aseptic such as in the setting of gout. 2. Mild osteoarthritis at the left elbow without associated elbow joint effusio n.
== END 2019-07-06 13:33 | disposition home or self-care (01) ==
PROVIDERS: PCP Internal Medicine; Visit Provider Internal Medicine Infectious Disease
DX: M71.10 Other infective bursitis, unspecified site (principal); M19.022 Primary osteoarthritis, left elbow; M25.422 Effusion, left elbow
CPT/HCPCS: 73200